=== PATIENT | female | born 1970 | race Caucasian/White ===

== ENCOUNTER 2018-01-24 10:43 | Outpatient (CLI) | payer OTHER ==
[2018-01-24 12:38] LABS: #Basophils 0.2 thou/uL (0.0-0.2); #Eosinphils 0.3 thou/uL (0.0-0.7); #Monocytes 0.5 thou/uL (0.11-0.59); #Neutrophils 4.2 thou/uL (1.40-6.50); %Eosinophils 3.8 % (0.0-10.0); %Lymphocytes 43.7 % (21.0-51.0); %Monocytes 5.1 % (0.0-10.0); %Neutrophils 45.5 % (42.0-75.0); Hemoglobin 11.8 g/dL (12.0-16.0); Mean Corpuscular HGB CONC 32.6 g/dL (32.0-36.0); Mean Corpuscular Hemoglobin 29.5 pg (27.0-31.0); Mean Corpuscular Volume 90.7 fl (81.0-99.0); Mean Platelet Volume 7.2 fL (7.4-10.4); Platelet Count 457 thou/uL (130-400); Red Blood Cell (RBC) Count 4.01 mill/uL (4.20-5.40); White Blood Cell (WBC) Count 9.2 thou/uL (4.8-10.8)
[2018-01-24 12:57] LABS: Anion Gap 14 mmol/L (10-20); BUN (Urea Nitrogen) 28 mg/dL (7.0-18.7); CRP (Inflammatory) Less than 0.50 mg/dL (= or < 0.5); Calc. Creatinine Clearance 0 mL/min (70-130); Calcium 9.6 mg/dL (7.8-10.44); Carbon Dioxide 23 mmol/L (22-29); Chloride 106 mmol/L (98-107); Estimated GFR-MDRD 71; Glucose 82 mg/dL (70-105); Potassium 5.4 mmol/L (3.5-5.1); Sodium 138 mmol/L (136-145)
--- NOTE | 2018-01-24 15:53 | EKG ---
Test Reason : Blood Pressure : / mmHG Vent. Rate : 070 BPM Atrial Rate : 070 BPM P-R Int : 176 ms QRS Dur : 088 ms QT Int : 376 ms P-R-T Axes : 049 024 027 degrees QTc Int : 406 ms Normal sinus rhythm Normal ECG Confirmed by CAROL ZAMORA ([id number]) on 01/24/2018 3:53:09 PM Referred By: COURTNEY Confirmed By:CAROL ZAMORA
== END 2018-01-24 10:44 | disposition home or self-care (01) ==
LOC: LABBT 10:43
PROVIDERS: ATTEND Orthopaedic Surgery
DX: Z01.818 Encounter for other preprocedural examination (principal); T84.54XA Infection and inflammatory reaction due to internal left knee prosthesis, initial encounter; M00.9 Pyogenic arthritis, unspecified; Z98.890 Other specified postprocedural states
CPT/HCPCS: 80048; 85025; 85652; 86140; 93005; 93010

== ENCOUNTER 2018-01-25 06:41 | Day surgery (SDC) | payer OTHER ==
--- NOTE | 2018-01-24 11:43 | HP ---
DATE OF ADMISSION: 01/25/2018 HISTORY OF PRESENT ILLNESS: The patient is a 47-year-old female, who sustained a vertical fracture o f her left patella, approximately a year and a half ago. She was treated conservatively, but did hav e persistent problems and developed a nonunion. She underwent open reduction and internal fixation i n 05/2017, which was complicated by a postoperative infection. The patient is a diabetic and chronic smoker. The infection was treated with antibiotics and wound VAC. She did improve, but has always had a persistent wound, which has slowly healed and granulated, and one of her screws did come out an d was removed in the office in the postoperative period. The fracture appears to have healed, but sh jerry still has a wound. She also fell several months ago and sustained an avulsion fracture from the in ferior pole of the patella, but she is able to straight leg raise and this does not appear to be a pr oblem. Recently, she has developed some increased pain and some slight drainage and repeat culture a gain reveals MRSA and she does have a small wound and exposed screw head. It was felt that the screw is a nidus for infection, and she has been at this time for removal of the screw and some wound debr idement and hopefully to allow this to go ahead and heal. PAST MEDICAL HISTORY: As noted above. The patient also has problems of bipolar disorder and chronic pain management, requiring large doses of pain medication. She has a history of hypertension, depre ssion, diabetes, and thyroid replacement. CURRENT MEDICATIONS: Include Bactrim, hydroxyzine, Nexium, metformin, Lipitor, clonazepam, Flexeril, ibuprofen, hydrocodone, tramadol, gabapentin. ALLERGIES: She is allergic to CELEBREX and BEXTRA, but can take ibuprofen. FAMILY HISTORY, SOCIAL HISTORY, AND REVIEW OF SYSTEMS: Otherwise, unremarkable. The patient is some what poorly compliant. PHYSICAL EXAMINATION: GENERAL: Reveals a healthy appearing female. She is afebrile. HEENT: Unremarkable. NECK: Supple. CHEST: Clear. HEART: Regular rate and rhythm. ABDOMEN: Soft, nontender. PELVIC/RECTAL/BREAST: Exams are deferred. EXTREMITIES: Pertinent findings are related to the left knee. There is some mild erythema at the wo und. There is a small 5 x 5 mm wound over the anterior knee and patella. The remainder of the wound is closed. There is some surrounding erythema. There is scant purulent drainage. There is 1 screw head exposed and a small amount of patellar bone exposed. She is able to straight leg raise. Range of motion is 5-115 degrees. She walks with a cane. There is no instability. Neurovascular exam is intact. LABORATORY AND X-RAY FINDINGS: X-rays reveal the fracture appears to be healing and there is an avul lorena fracture in the inferior pole of patella. IMPRESSION: Status post open reduction and internal fixation, left patella with nonunion and some po stoperative infection with retained implant. PLAN: Screw removal and debridement, left knee and left patella. The nature of the surgery, length of recovery, and potential complications such as persistent infection, loss of motion, neurovascular injury, thromboembolic phenomena, and need for additional treatment or repeat surgery have been discu ssed in detail.
[2018-01-25] MEDS ORDERED: Levofloxacin 500 mg/D5W 100 ml Premix Bag ONE (07:41)
[2018-01-25] MEDS ORDERED: Fentanyl 100 MCG/2 ML VIAL ONE ×3 (08:47→09:44)
[2018-01-25] MEDS ORDERED: PROPOFOL 20 ML ONE (09:02)
[2018-01-25] MEDS ORDERED: Labetalol HCl 100 MG/20 ML VIAL ONE (09:44)
--- NOTE | 2018-01-25 11:12 | OP ---
DATE OF PROCEDURE: 01/25/2018 SURGEON: Prakash Camacho M.D. ANESTHESIA: General. PREOPERATIVE DIAGNOSES: Retained implant left patella, status post open reduction internal fixation with postop infection secondary to methicillin-resistant Staphylococcus aureus. POSTOPERATIVE DIAGNOSES: Retained implant left patella, status post open reduction internal fixatio n with postop infection secondary to methicillin-resistant Staphylococcus aureus. PROCEDURE: Removal of deep implant (screw left patella). NARRATIVE REPORT: After satisfactory anesthesia was induced in supine position, the patient was prep ped and draped in routine manner. The tourniquet was not used. The small open wound was explored. A small amount of necrotic skin edges were sharply debrided. The skin edges were retracted and the s crew head along the medial aspect of patella was easily identified and the screw removed with a small fragment screwdriver without much difficulty. There was some necrotic soft tissue which was curette d and a small spicule of necrotic bone, but no obvious osteomyelitis and no gross pus or joint involv ement. The wound was thoroughly curetted to make sure there were no pockets or fluid, necrotic tissu e down to bleeding bone and bleeding subcutaneous tissue. The wound was then thoroughly irrigated wi th a liter of saline and appeared to be clean with no obvious areas of necrotic tissue. The wound wa s then gently packed open with Adaptic and a bulky compressive dressing was applied. The patient chicho kened, taken to recovery room in stable condition. There were no apparent intraoperative complicatio ns. ESTIMATED BLOOD LOSS: The estimated blood loss was negligible. The patient will be discharged home in satisfactory condition. She was instructed on ice and elevati on, use of a walker or crutches. She may resume dressing changes once or twice daily in 48 hours. S he is given a prescription for [place] 5 for pain, 48 tablets and will continue Bactrim-DS b.i.d. 20 ta blets. She will recheck in my office in 1 week or sooner for any problems prior to that time.
[2018-01-25] MEDS ORDERED: PROPOFOL 200 MG/20 ML VIAL ONE (12:34)
[2018-01-25] MEDS ORDERED: PHENYLEPHRINE-NS 100 MCG/ML 10 ML SYRINGE ONE (12:34)
[2018-01-25] MEDS ORDERED: Lidocaine 1% PF 5 ML VIAL ONE (12:34)
[2018-01-25] MEDS ORDERED: Succinylcholine Chloride 20 MG/ML 10 ml SYRINGE FS ONE (12:34)
== END 2018-01-25 11:00 | disposition home or self-care (01) ==
LOC: SDC 06:41
PROVIDERS: ATTEND Orthopaedic Surgery
PROC: 2W5RXYZ Removal of Other Device on Left Lower Leg (ICD-10-PCS; principal; 2018-01-25)
DX: T84.54XA Infection and inflammatory reaction due to internal left knee prosthesis, initial encounter (principal); B95.62 Methicillin resistant Staphylococcus aureus infection as the cause of diseases classified elsewhere; E11.9 Type 2 diabetes mellitus without complications; F31.9 Bipolar disorder, unspecified; I10 Essential (primary) hypertension; F17.200 Nicotine dependence, unspecified, uncomplicated; Z79.84 Long term (current) use of oral hypoglycemic drugs; Z79.2 Long term (current) use of antibiotics; Z79.51 Long term (current) use of inhaled steroids; Z79.899 Other long term (current) drug therapy; Z88.6 Allergy status to analgesic agent; Z98.890 Other specified postprocedural states
CPT/HCPCS: 36416; J1956; J2001; J2704; J3010; J3370

== ENCOUNTER 2020-02-19 13:01 | Outpatient (CLI) | payer OTHER ==
--- NOTE | 2020-02-19 15:50 | MRI ---
RIGHT KNEE MRI WITHOUT IV CONTRAST: HISTORY: Internal derangement right knee, right knee pain. FINDINGS: No significant joint effusion. Articular cartilage is adequately maintained. There is slight blunti ng of the free edge of the posterior root of the medial meniscus. Minimal intrasubstance intramenisc al degenerative signal. No evidence for an acute meniscal tear. Anterior and posterior cruciate lig aments and collateral ligament complexes are intact. Quadriceps and patellar tendons are intact. No acute abnormal marrow edema or acute osteochondral focus. IMPRESSION: No evidence for significant acute internal derangement. Minimal intrasubstance degenerative signal o f medial and lateral meniscus. Slight blunting of the free edge of the posterior root of the medial meniscus having more of the appearance of minimal fraying rather than a significant acute tear. POS: RRE
== END 2020-02-19 13:02 | disposition home or self-care (01) ==
LOC: BICMRI 13:01
PROVIDERS: ATTEND Orthopaedic Surgery
DX: M23.91 Unspecified internal derangement of right knee (principal); M17.11 Unilateral primary osteoarthritis, right knee

== ENCOUNTER 2021-02-19 12:05 | Outpatient (CLI) | payer OTHER | END 2021-02-19 12:06 | disposition home or self-care (01) | LOC: BICMRI 12:05 | PROVIDERS: ATTEND Neurological Surgery | DX: M51.16 Intervertebral disc disorders with radiculopathy, lumbar region (principal); M48.061 Spinal stenosis, lumbar region without neurogenic claudication | CPT/HCPCS: 72148 ==

== ENCOUNTER 2021-08-17 13:58 | Inpatient (IN) | payer OTHER ==
[2021-08-17] MEDS ORDERED: Ondansetron PF 4 MG/2 ML Vial IVP PRN (16:00)
[2021-08-17] MEDS ORDERED: Acetaminophen 325 MG TAB PO PRN (16:00)
[2021-08-17] MEDS ORDERED: Pantoprazole 80 MG, Admixture Fee 1 EACH in Sodium Chloride 0.9% 100 ML IVPB SCH (16:00)
[2021-08-17] MEDS ORDERED: Ondansetron ODT 4 MG TAB SL PRN (16:00)
[2021-08-17] MEDS ORDERED: Guaifenesin DM 100-10/5 ML UDCUP PO PRN (16:05)
[2021-08-17 16:26] LABS: #Basophils 0.1 thou/uL (0.0-0.2); #Eosinphils 0.6 thou/uL (0.0-0.7); #Monocytes 0.9 thou/uL (0.11-0.59); #Neutrophils 13.8 thou/uL (1.40-6.50); %Basophils 0.6 % (0.0-1.0); %Eosinophils 2.9 % (0.0-10.0); %Lymphocytes 20.5 % (21.0-51.0); %Monocytes 4.6 % (0.0-10.0); %Neutrophils 71.4 % (42.0-75.0); Hemoglobin 11.6 g/dL (12.0-16.0); Mean Corpuscular HGB CONC 32.8 g/dL (32.0-36.0); Mean Corpuscular Hemoglobin 28.9 pg (27.0-31.0); Mean Corpuscular Volume 87.9 fL (78.0-98.0); Platelet Count 231 thou/uL (130-400); RBC Distribution Width 12.8 % (11.5-14.5); White Blood Cell (WBC) Count 19.3 thou/uL (4.8-10.8)
[2021-08-17 16:59] VITALS: BMI 26.4
[2021-08-17] MEDS ORDERED: Morphine 4 MG/ML VIAL SLOW IVP PRN (18:15)
[2021-08-17] MEDS ORDERED: tiZANidine HCl 4 MG TAB PO PRN (18:21)
[2021-08-17] MEDS: Sodium Chloride 0.9% 1,000 ML IV SCH (18:31)
[2021-08-17] MEDS: Aripiprazole 10 MG TAB PO SCH (20:45)
[2021-08-17] MEDS: cloNIDine 0.1 MG TAB PO SCH (20:45)
[2021-08-17] MEDS: Gabapentin 300 MG CAP PO SCH (20:45)
[2021-08-17] MEDS: OXcarbazepine 300 MG TAB PO SCH (20:47)
[2021-08-17] MEDS: PARoxetine 20 MG TAB PO SCH (20:47)
[2021-08-17] MEDS: metroNIDAZOLE 500 MG TAB PO SCH (20:47)
[2021-08-17] MEDS ORDERED: metroNIDAZOLE 500 MG in Premix Bag 1 BAG IVPB SCH (22:00)
[2021-08-17] MEDS: traMADol HCl 50 MG TAB PO SCH (23:22)
[2021-08-17 23:53] LABS: Bilirubin Negative (Negative); Blood, Urine Negative (Negative); Clarity Clear (Clear); Glucose, Urine (Dipstick) 200 mg/dL (Negative); Ketone, Urine Negative (Negative); Leukocyte Negative Leu/uL (Negative); Nitrite Negative (Negative); Protein, Urine (Dipstick) Negative (Neg-Trace); Specific Gravity, Urine 1.019 (1.002-1.036); Urobilinogen Normal mg/dL (Less than 2)
[2021-08-18 04:47] LABS: #Basophils 0.1 thou/uL (0.0-0.2); #Eosinphils 0.9 thou/uL (0.0-0.7); #Lymphocytes 3.1 thou/uL (1.20-3.40); #Monocytes 0.9 thou/uL (0.11-0.59); #Neutrophils 10.4 thou/uL (1.40-6.50); %Basophils 0.7 % (0.0-1.0); %Eosinophils 5.9 % (0.0-10.0); %Lymphocytes 20.3 % (21.0-51.0); %Monocytes 5.9 % (0.0-10.0); %Neutrophils 67.2 % (42.0-75.0); Hemoglobin 11.3 g/dL (12.0-16.0); Mean Corpuscular HGB CONC 34.3 g/dL (32.0-36.0); Mean Corpuscular Hemoglobin 30.3 pg (27.0-31.0); Mean Corpuscular Volume 88.3 fL (78.0-98.0); Mean Platelet Volume 8.2 fL (7.4-10.4); Platelet Count 218 thou/uL (130-400); RBC Distribution Width 12.7 % (11.5-14.5); Red Blood Cell (RBC) Count 3.74 mill/uL (4.20-5.40); White Blood Cell (WBC) Count 15.4 thou/uL (4.8-10.8)
[2021-08-18 05:11] LABS: ALT (SGPT) 39 U/L (8-55); AST (SGOT) 9 U/L (5-34); Albumin 3.2 g/dL (3.5-5.0); Alkaline Phosphatase 107 U/L (40-110); Anion Gap 10 mmol/L (10-20); BUN (Urea Nitrogen) 13 mg/dL (9.8-20.1); Bilirubin, Total 0.2 mg/dL (0.2-1.2); Calc. Creatinine Clearance 103 mL/min (70-130); Calcium 8.5 mg/dL (7.8-10.44); Carbon Dioxide 25 mmol/L (22-29); Chloride 102 mmol/L (98-107); Globulin 2.6 g/dL (2.4-3.5); Glucose 132 mg/dL (70-105); Potassium 3.4 mmol/L (3.5-5.1); Protein, Total 5.8 g/dL (6.0-8.3); Sodium 134 mmol/L (136-145)
[2021-08-18] MEDS: traMADol HCl 50 MG TAB PO SCH ×4 (05:51→22:55)
[2021-08-18] MEDS ORDERED: CEFAZOLIN 2 GM, IV Admixture Fee-Chemo 1 UNITS in Sodium Chloride 0.9% 100 ML IVPB SCH (12:00)
[2021-08-18] MEDS ORDERED: ceFAZolin 2 GM/DEX 5% 100 ML BAG IVPB SCH (12:00)
[2021-08-18] MEDS: Gabapentin 300 MG CAP PO SCH ×3 (12:02→20:40)
[2021-08-18] MEDS: Sodium Chloride 0.9% 1,000 ML IV SCH ×2 (13:04→20:39)
[2021-08-18] MEDS: OXcarbazepine 300 MG TAB PO SCH ×2 (13:05→20:47)
[2021-08-18] MEDS: metroNIDAZOLE 500 MG TAB PO SCH ×3 (13:11→20:40)
[2021-08-18 13:31] LABS: SARS-CoV-2 PCR by NAA Not Detected (NotDetected)
[2021-08-18] MEDS ORDERED: Dextrose 50% Abboject 50 ML SYRINGE SLOW IVP PRN (17:02)
[2021-08-18] MEDS ORDERED: Dextrose 5% in Water 1,000 ML IV PRN (17:02)
[2021-08-18] MEDS ORDERED: Potassium Chloride 20 MEQ TAB PO SCH (17:30)
[2021-08-18] MEDS: HumaLOG 300 UNITS/3 ML VIAL SC PRN (17:34)
[2021-08-18] MEDS: Aripiprazole 10 MG TAB PO SCH (20:40)
[2021-08-18] MEDS: ceFAZolin Sodium/D5W 2 GM in Premix Bag 1 BAG IVPB SCH (20:40)
[2021-08-18] MEDS: cloNIDine 0.1 MG TAB PO SCH (20:40)
[2021-08-18] MEDS: PARoxetine 20 MG TAB PO SCH (20:41)
[2021-08-19 05:04] LABS: #Basophils 0.2 thou/uL (0.0-0.2); #Eosinphils 0.6 thou/uL (0.0-0.7); #Lymphocytes 3.5 thou/uL (1.20-3.40); #Monocytes 1.2 thou/uL (0.11-0.59); #Neutrophils 11.4 thou/uL (1.40-6.50); %Eosinophils 3.7 % (0.0-10.0); %Lymphocytes 20.5 % (21.0-51.0); %Monocytes 7.1 % (0.0-10.0); %Neutrophils 67.7 % (42.0-75.0); Mean Corpuscular HGB CONC 33.8 g/dL (32.0-36.0); Mean Corpuscular Hemoglobin 31.1 pg (27.0-31.0); Mean Corpuscular Volume 92.1 fL (78.0-98.0); Mean Platelet Volume 8.9 fL (7.4-10.4); Platelet Count 220 thou/uL (130-400); RBC Distribution Width 12.9 % (11.5-14.5); Red Blood Cell (RBC) Count 3.53 mill/uL (4.20-5.40); White Blood Cell (WBC) Count 16.8 thou/uL (4.8-10.8)
[2021-08-19] MEDS: traMADol HCl 50 MG TAB PO SCH ×4 (05:08→23:39)
[2021-08-19] MEDS: ceFAZolin Sodium/D5W 2 GM in Premix Bag 1 BAG IVPB SCH ×3 (05:08→21:56)
[2021-08-19 05:22] LABS: Anion Gap 13 mmol/L (10-20); BUN (Urea Nitrogen) 5 mg/dL (9.8-20.1); Calc. Creatinine Clearance 109 mL/min (70-130); Calcium 8.4 mg/dL (7.8-10.44); Carbon Dioxide 19 mmol/L (22-29); Chloride 100 mmol/L (98-107); Glucose 124 mg/dL (70-105); Potassium 3.9 mmol/L (3.5-5.1); Sodium 128 mmol/L (136-145)
[2021-08-19] MEDS: Gabapentin 300 MG CAP PO SCH ×3 (09:46→20:35)
[2021-08-19] MEDS: metroNIDAZOLE 500 MG TAB PO SCH ×3 (09:54→20:36)
[2021-08-19] MEDS: OXcarbazepine 300 MG TAB PO SCH ×2 (09:58→20:35)
[2021-08-19] MEDS: HumaLOG 300 UNITS/3 ML VIAL SC PRN (10:54)
[2021-08-19] MEDS: Bisacodyl 5 MG TAB PO PRN (10:55)
[2021-08-19] MEDS: Sodium Chloride 0.9% 1,000 ML IV SCH ×2 (11:16→23:39)
[2021-08-19] MEDS: Aripiprazole 10 MG TAB PO SCH (20:35)
[2021-08-19] MEDS: PARoxetine 20 MG TAB PO SCH (20:35)
[2021-08-19] MEDS: cloNIDine 0.1 MG TAB PO SCH (20:35)
[2021-08-19] MEDS ORDERED: metroNIDAZOLE 500 MG in Premix Bag 1 BAG IVPB SCH (22:00)
[2021-08-20] MEDS: traMADol HCl 50 MG TAB PO SCH ×4 (06:02→23:46)
[2021-08-20] MEDS: ceFAZolin Sodium/D5W 2 GM in Premix Bag 1 BAG IVPB SCH ×3 (06:02→21:20)
[2021-08-20 06:35] LABS: #Basophils 0.1 thou/uL (0.0-0.2); #Eosinphils 0.5 thou/uL (0.0-0.7); #Lymphocytes 2.4 thou/uL (1.20-3.40); #Monocytes 1.3 thou/uL (0.11-0.59); %Basophils 0.6 % (0.0-1.0); %Lymphocytes 15.5 % (21.0-51.0); %Monocytes 8.5 % (0.0-10.0); %Neutrophils 72.4 % (42.0-75.0); Hemoglobin 11.8 g/dL (12.0-16.0); Mean Corpuscular HGB CONC 33.7 g/dL (32.0-36.0); Mean Corpuscular Hemoglobin 29.4 pg (27.0-31.0); Mean Corpuscular Volume 87.3 fL (78.0-98.0); Platelet Count 322 thou/uL (130-400); RBC Distribution Width 12.7 % (11.5-14.5); Red Blood Cell (RBC) Count 4.02 mill/uL (4.20-5.40); White Blood Cell (WBC) Count 15.3 thou/uL (4.8-10.8)
[2021-08-20 06:57] LABS: Anion Gap 12 mmol/L (10-20); BUN (Urea Nitrogen) 4 mg/dL (9.8-20.1); Calc. Creatinine Clearance 123 mL/min (70-130); Carbon Dioxide 25 mmol/L (22-29); Chloride 99 mmol/L (98-107); Glucose 178 mg/dL (70-105); Potassium 3.1 mmol/L (3.5-5.1); Sodium 133 mmol/L (136-145)
[2021-08-20] MEDS ORDERED: Polyethylene Glycol 3350 17 GM Packet PO PRN (08:07)
[2021-08-20] MEDS ORDERED: Polyethylene Glycol 3350 17 GM Packet PO SCH (09:00)
[2021-08-20] MEDS: OXcarbazepine 300 MG TAB PO SCH ×2 (09:16→21:18)
[2021-08-20] MEDS: Gabapentin 300 MG CAP PO SCH ×3 (09:16→21:19)
[2021-08-20] MEDS: metroNIDAZOLE 500 MG TAB PO SCH ×3 (09:16→21:19)
[2021-08-20] MEDS: Sodium Chloride 0.9% 1,000 ML IV SCH (09:16)
[2021-08-20] MEDS: Acetaminophen/Codeine 30-300mg Tablet PO PRN (10:53)
[2021-08-20] MEDS: Bisacodyl 5 MG TAB PO PRN (10:53)
[2021-08-20] MEDS: HumaLOG 300 UNITS/3 ML VIAL SC PRN (12:44)
[2021-08-20] MEDS ORDERED: FLU VACC QS2021-22(6MOS UP)/PF 60 MCG/0.5 ML SYRINGE IM ONE (17:15)
[2021-08-20] MEDS: cloNIDine 0.1 MG TAB PO SCH (21:19)
[2021-08-20] MEDS: Aripiprazole 10 MG TAB PO SCH (21:19)
[2021-08-20] MEDS: PARoxetine 20 MG TAB PO SCH (21:19)
[2021-08-20 23:12] LABS: #Basophils 0.1 thou/uL (0.0-0.2); #Eosinphils 0.7 thou/uL (0.0-0.7); #Lymphocytes 3.5 thou/uL (1.20-3.40); #Monocytes 1.3 thou/uL (0.11-0.59); #Neutrophils 7.3 thou/uL (1.40-6.50); %Basophils 0.8 % (0.0-1.0); %Eosinophils 5.4 % (0.0-10.0); %Lymphocytes 27.1 % (21.0-51.0); %Monocytes 9.7 % (0.0-10.0); %Neutrophils 56.9 % (42.0-75.0); Hemoglobin 11.1 g/dL (12.0-16.0); Mean Corpuscular HGB CONC 34.3 g/dL (32.0-36.0); Mean Corpuscular Hemoglobin 30.1 pg (27.0-31.0); Mean Corpuscular Volume 87.7 fL (78.0-98.0); Mean Platelet Volume 7.8 fL (7.4-10.4); Platelet Count 319 thou/uL (130-400); RBC Distribution Width 12.7 % (11.5-14.5); Red Blood Cell (RBC) Count 3.68 mill/uL (4.20-5.40); White Blood Cell (WBC) Count 12.9 thou/uL (4.8-10.8)
[2021-08-21] MEDS: Sodium Chloride 0.9% 1,000 ML IV SCH (02:31)
[2021-08-21] MEDS: traMADol HCl 50 MG TAB PO SCH ×2 (05:35→12:03)
[2021-08-21] MEDS: ceFAZolin Sodium/D5W 2 GM in Premix Bag 1 BAG IVPB SCH ×2 (05:35→12:49)
[2021-08-21 05:37] LABS: #Basophils 0.1 thou/uL (0.0-0.2); #Eosinphils 0.7 thou/uL (0.0-0.7); #Lymphocytes 2.7 thou/uL (1.20-3.40); #Monocytes 1.2 thou/uL (0.11-0.59); #Neutrophils 6.4 thou/uL (1.40-6.50); %Basophils 0.6 % (0.0-1.0); %Lymphocytes 24.5 % (21.0-51.0); %Neutrophils 57.9 % (42.0-75.0); Hemoglobin 11.6 g/dL (12.0-16.0); Mean Corpuscular HGB CONC 33.5 g/dL (32.0-36.0); Mean Corpuscular Hemoglobin 29.5 pg (27.0-31.0); Mean Corpuscular Volume 88.2 fL (78.0-98.0); Mean Platelet Volume 7.6 fL (7.4-10.4); Platelet Count 379 thou/uL (130-400); RBC Distribution Width 12.6 % (11.5-14.5); Red Blood Cell (RBC) Count 3.93 mill/uL (4.20-5.40)
[2021-08-21] MEDS: HumaLOG 300 UNITS/3 ML VIAL SC PRN ×2 (05:40→12:05)
[2021-08-21 05:53] LABS: Anion Gap 11 mmol/L (10-20); BUN (Urea Nitrogen) 6 mg/dL (9.8-20.1); Calc. Creatinine Clearance 109 mL/min (70-130); Calcium 8.7 mg/dL (7.8-10.44); Carbon Dioxide 25 mmol/L (22-29); Chloride 100 mmol/L (98-107); Glucose 200 mg/dL (70-105); Potassium 3.3 mmol/L (3.5-5.1); Sodium 133 mmol/L (136-145)
[2021-08-21] MEDS: metroNIDAZOLE 500 MG TAB PO SCH (08:45)
[2021-08-21] MEDS: Gabapentin 300 MG CAP PO SCH (08:45)
[2021-08-21] MEDS: Acetaminophen/Codeine 30-300mg Tablet PO PRN (08:45)
[2021-08-21] MEDS: OXcarbazepine 300 MG TAB PO SCH (08:45)
[2021-08-21 14:10] VITALS: BP 136/91; TEMP 98.1
== END 2021-08-21 14:15 | disposition home or self-care (01) | DRG 394 ==
LOC: 2NO 15:48 → T4-A 08-19 11:20
PROVIDERS: ADMIT Hospitalist; ATTEND Internal Medicine
DX: K55.039 Acute (reversible) ischemia of large intestine, extent unspecified (principal); D62 Acute posthemorrhagic anemia; R78.81 Bacteremia; N39.0 Urinary tract infection, site not specified; Z20.822 Contact with and (suspected) exposure to COVID-19; J44.9 Chronic obstructive pulmonary disease, unspecified; F17.210 Nicotine dependence, cigarettes, uncomplicated; F31.9 Bipolar disorder, unspecified; B95.61 Methicillin susceptible Staphylococcus aureus infection as the cause of diseases classified elsewhere; E11.9 Type 2 diabetes mellitus without complications; I10 Essential (primary) hypertension; F41.9 Anxiety disorder, unspecified; E87.6 Hypokalemia; B96.20 Unspecified Escherichia coli [E. coli] as the cause of diseases classified elsewhere; F12.10 Cannabis abuse, uncomplicated; Z88.5 Allergy status to narcotic agent; Z79.84 Long term (current) use of oral hypoglycemic drugs; Z79.51 Long term (current) use of inhaled steroids; Z79.899 Other long term (current) drug therapy
CPT/HCPCS: 36415; 36416; 80048; 80053; 85025; 87045; 87046; 87427; 87449; 93005; 93010; J0690; J0744; J1815; J3490; J7050; U0003; U0005

== ENCOUNTER 2022-02-15 07:00 | Day surgery (SDC) | payer OTHER ==
[2022-02-15 08:14] VITALS: BP 138/87; TEMP 98.2
[2022-02-15] MEDS ORDERED: Acetaminophen 500 MG TAB ONE (09:06)
[2022-02-15] MEDS ORDERED: Iopamidol-M 200 41% 20 ML VIAL ONE (09:10)
== END 2022-02-15 09:45 | disposition home or self-care (01) ==
LOC: RAD 07:00
PROVIDERS: ATTEND Neurological Surgery
PROC: B01B1ZZ Fluoroscopy of Spinal Cord using Low Osmolar Contrast (ICD-10-PCS; principal; 2022-02-15)
DX: M51.16 Intervertebral disc disorders with radiculopathy, lumbar region (principal); M47.26 Other spondylosis with radiculopathy, lumbar region; M48.061 Spinal stenosis, lumbar region without neurogenic claudication; M51.37 Other intervertebral disc degeneration, lumbosacral region; M48.07 Spinal stenosis, lumbosacral region; Z79.84 Long term (current) use of oral hypoglycemic drugs; Z79.899 Other long term (current) drug therapy; Z88.6 Allergy status to analgesic agent; Z88.8 Allergy status to other drugs, medicaments and biological substances
CPT/HCPCS: 62304; 72132; Q9966

== ENCOUNTER 2022-09-10 13:26 | Inpatient (IN) | payer OTHER ==
[2022-09-10] MEDS ORDERED: Cefepime 2 GM VIAL ONE (13:48)
[2022-09-10] MEDS ORDERED: Nitroglycerin 2% Ointment 1 INCH/1 GM Packet ONE (13:48)
[2022-09-10] MEDS ORDERED: Vancomycin 1 GM/200 ML (FROZEN) BAG ONE (13:48)
[2022-09-10] MEDS ORDERED: Magnesium 2 GM/50 ML BAG (IN WATER) ONE (13:54)
[2022-09-10 14:18] LABS: Hemoglobin 12.1 g/dL (12.0-16.0); Mean Corpuscular HGB CONC 32.7 g/dL (32.0-36.0); Mean Corpuscular Volume 88.5 fl (78.0-98.0); Platelet Count 314 10x3/uL (130-400); RBC Distribution Width 12.3 % (11.5-14.5); Red Blood Cell (RBC) Count 4.17 mill/uL (4.20-5.40); White Blood Cell (WBC) Count 22.6 10x3/uL (4.8-10.8)
[2022-09-10 14:34] LABS: Band 12 % (5-11); MDiff Complete? YES; Monocytes 1 % (0-10); Neutrophil 86 % (42-75); Platelet Morphology Comment Appears Adequate; RBC Morphology Normal; Reactive Lymphocytes 1 % (0-10)
[2022-09-10 14:36] LABS: ALT (SGPT) 51 U/L (8-55); AST (SGOT) 36 U/L (5-34); Albumin 4.3 g/dL (3.5-5.0); Alkaline Phosphatase 158 U/L (40-110); Anion Gap 15 mmol/L (10-20); BUN (Urea Nitrogen) 17 mg/dL (9.8-20.1); Bilirubin, Total 0.2 mg/dL (0.2-1.2); Calc. Creatinine Clearance 0 mL/min (70-130); Calcium 9.3 mg/dL (7.8-10.44); Carbon Dioxide 20 mmol/L (22-29); Chloride 97 mmol/L (98-107); Estimated GFR 82; Globulin 2.8 g/dL (2.4-3.5); Glucose 393 mg/dL (70-105); Lipase 45 U/L (8-78); Magnesium 1.3 mg/dL (1.6-2.6); Potassium 4.6 mmol/L (3.5-5.1); Protein, Total 7.1 g/dL (6.0-8.3); Sodium 127 mmol/L (136-145)
[2022-09-10] MEDS ORDERED: Senokot S 8.6-50 MG TAB PO PRN (17:12)
[2022-09-10] MEDS ORDERED: Dextrose 5% in Water 1,000 ML IV PRN (17:15)
[2022-09-10] MEDS ORDERED: Furosemide 20 MG/2 ML VIAL SLOW IVP SCH (17:15)
[2022-09-10] MEDS ORDERED: Dextrose 50% Abboject 50 ML SYRINGE SLOW IVP PRN (17:15)
[2022-09-10 17:36] VITALS: BMI 31.3
[2022-09-10 17:41] LABS: SARS-CoV-2 NAA Rapid Test Not Detected (NotDetected)
[2022-09-10] MEDS: Nicotine 14 MG PATCH TD SCH (17:48)
[2022-09-10 19:06] LABS: Bacteria/HPF None Seen HPF (None Seen); Bilirubin Negative (Negative); Blood, Urine Negative (Negative); Clarity Clear (Clear); Glucose, Urine (Dipstick) 300 mg/dL (Negative); Ketone, Urine Negative (Negative); Leukocyte Negative Leu/uL (Negative); Nitrite Negative (Negative); Protein, Urine (Dipstick) Negative (Neg-Trace); RBC/HPF None Seen HPF (0-3); Specific Gravity, Urine 1.006 (1.002-1.036); Squamous Epithelial 0-3 HPF (0-3); Urobilinogen Normal mg/dL (Less than 2); WBC/HPF 0-3 HPF (0-3); pH, Urine 5.5 (5.0-9.0)
[2022-09-10 19:14] LABS: Amphetamine Not Detected (NotDetected); Barbiturates Screen Not Detected (NotDetected); Benzodiazepine Screen Not Detected (NotDetected); Cocaine Metabolite Screen Not Detected (NotDetected); Methadone Not Detected (NotDetected); Methamphetamine Detected (NotDetected); Opiate Screen Not Detected (NotDetected); Oxycodone Screen Not Detected (NotDetected); Phencyclidine (PCP) Not Detected (NotDetected); THC/Cannabinoid Screen Detected (NotDetected); Tricyclic Screen Not Detected (NotDetected)
[2022-09-10] MEDS: Famotidine 20 MG TAB PO SCH (20:40)
[2022-09-10] MEDS: OXcarbazepine 300 MG TAB PO SCH (20:40)
[2022-09-10] MEDS: cefTRIAXone\\ROCEPHIN 1 GM in Sodium Chloride 0.9% 100 ML IVPB SCH (20:40)
[2022-09-10] MEDS: Doxycycline 100 MG CAP PO SCH (20:44)
[2022-09-10] MEDS: methylPREDNISolone Sod Succ 40 MG VIAL IVP SCH (20:44)
[2022-09-10] MEDS: HumaLOG 300 UNITS/3 ML VIAL SC PRN (20:50)
[2022-09-11] MEDS: HumaLOG 300 UNITS/3 ML VIAL SC PRN (05:55)
[2022-09-11 07:48] LABS: #Basophils 0.1 thou/uL (0.0-0.2); #Lymphocytes 2.4 thou/uL (1.20-3.40); #Monocytes 0.6 thou/uL (0.11-0.59); #Neutrophils 7.4 thou/uL (1.40-6.50); %Basophils 0.6 % (0.0-1.0); %Eosinophils 0.1 % (0.0-10.0); %Lymphocytes 23.1 % (21.0-51.0); %Monocytes 5.7 % (0.0-10.0); %Neutrophils 70.5 % (42.0-75.0); Hemoglobin 11.5 g/dL (12.0-16.0); Mean Corpuscular HGB CONC 32.1 g/dL (32.0-36.0); Mean Corpuscular Hemoglobin 28.4 pg (27.0-31.0); Mean Corpuscular Volume 88.3 fl (78.0-98.0); Mean Platelet Volume 8.3 fL (7.4-10.4); Platelet Count 305 10x3/uL (130-400); RBC Distribution Width 12.3 % (11.5-14.5); Red Blood Cell (RBC) Count 4.04 mill/uL (4.20-5.40); White Blood Cell (WBC) Count 10.4 10x3/uL (4.8-10.8)
[2022-09-11 07:51] LABS: Anion Gap 13 mmol/L (10-20); BUN (Urea Nitrogen) 16 mg/dL (9.8-20.1); Calc. Creatinine Clearance 114 mL/min (70-130); Calcium 9.3 mg/dL (7.8-10.44); Carbon Dioxide 24 mmol/L (22-29); Chloride 102 mmol/L (98-107); Estimated GFR 102; Glucose 147 mg/dL (70-105); Potassium 4.2 mmol/L (3.5-5.1); Sodium 135 mmol/L (136-145)
[2022-09-11] MEDS: Aripiprazole 10 MG TAB PO SCH (09:12)
[2022-09-11] MEDS: Famotidine 20 MG TAB PO SCH ×2 (09:12→20:34)
[2022-09-11] MEDS: Enoxaparin Sodium 40 MG/0.4 ML SYRINGE SC SCH (09:12)
[2022-09-11] MEDS: Doxycycline 100 MG CAP PO SCH ×2 (09:12→20:36)
[2022-09-11] MEDS: Lisinopril 5 MG TAB PO SCH (09:13)
[2022-09-11] MEDS: methylPREDNISolone Sod Succ 40 MG VIAL IVP SCH ×2 (09:13→20:36)
[2022-09-11] MEDS: OXcarbazepine 300 MG TAB PO SCH ×2 (09:13→20:35)
[2022-09-11] MEDS: Acetaminophen 325 MG TAB PO PRN (09:16)
[2022-09-11] MEDS ORDERED: tiZANidine HCl 4 MG TAB PO PRN (13:32)
[2022-09-11] MEDS: Gabapentin 300 MG CAP PO SCH ×2 (16:40→20:35)
[2022-09-11] MEDS: Nicotine 14 MG PATCH TD SCH (17:10)
[2022-09-11] MEDS: metFORMIN 500 MG TAB PO SCH (17:10)
[2022-09-11] MEDS: Mometasone 200 MCG/Formoterol 5 MCG 120 PUFF INHALER INH SCH (18:54)
[2022-09-11] MEDS: cloNIDine 0.1 MG TAB PO SCH (20:35)
[2022-09-11] MEDS: PARoxetine 20 MG TAB PO SCH (20:35)
[2022-09-11] MEDS: cefTRIAXone\\ROCEPHIN 1 GM in Sodium Chloride 0.9% 100 ML IVPB SCH (20:37)
[2022-09-12 06:49] LABS: #Basophils 0.1 thou/uL (0.0-0.2); #Eosinphils 0.1 thou/uL (0.0-0.7); #Lymphocytes 4.4 thou/uL (1.20-3.40); #Monocytes 0.7 thou/uL (0.11-0.59); #Neutrophils 7.2 thou/uL (1.40-6.50); %Basophils 0.8 % (0.0-1.0); %Eosinophils 0.4 % (0.0-10.0); %Lymphocytes 35.3 % (21.0-51.0); %Monocytes 5.7 % (0.0-10.0); %Neutrophils 57.7 % (42.0-75.0); Hemoglobin 11.4 g/dL (12.0-16.0); Mean Corpuscular HGB CONC 32.3 g/dL (32.0-36.0); Mean Corpuscular Hemoglobin 28.6 pg (27.0-31.0); Mean Corpuscular Volume 88.5 fl (78.0-98.0); Mean Platelet Volume 8.1 fL (7.4-10.4); Platelet Count 319 10x3/uL (130-400); RBC Distribution Width 12.3 % (11.5-14.5); Red Blood Cell (RBC) Count 3.98 mill/uL (4.20-5.40); White Blood Cell (WBC) Count 12.5 10x3/uL (4.8-10.8)
[2022-09-12 07:13] LABS: ALT (SGPT) 30 U/L (8-55); AST (SGOT) 12 U/L (5-34); Alkaline Phosphatase 112 U/L (40-110); Anion Gap 13 mmol/L (10-20); BUN (Urea Nitrogen) 30 mg/dL (9.8-20.1); Bilirubin, Total 0.2 mg/dL (0.2-1.2); Calc. Creatinine Clearance 106 mL/min (70-130); Carbon Dioxide 24 mmol/L (22-29); Chloride 100 mmol/L (98-107); Estimated GFR 94; Globulin 2.8 g/dL (2.4-3.5); Glucose 137 mg/dL (70-105); Potassium 4.7 mmol/L (3.5-5.1); Protein, Total 6.8 g/dL (6.0-8.3); Sodium 132 mmol/L (136-145)
[2022-09-12] MEDS: Mometasone 200 MCG/Formoterol 5 MCG 120 PUFF INHALER INH SCH ×2 (07:17→19:12)
[2022-09-12] MEDS ORDERED: Non-Formulary Item 1 EACH (Tiotropium Bromide 4 GM Inhaler) IH SCH (09:00)
[2022-09-12] MEDS: Doxycycline 100 MG CAP PO SCH ×2 (09:12→21:12)
[2022-09-12] MEDS: metFORMIN 500 MG TAB PO SCH ×2 (09:12→16:00)
[2022-09-12] MEDS: Aripiprazole 10 MG TAB PO SCH (09:12)
[2022-09-12] MEDS: Enoxaparin Sodium 40 MG/0.4 ML SYRINGE SC SCH (09:13)
[2022-09-12] MEDS: methylPREDNISolone Sod Succ 40 MG VIAL IVP SCH ×2 (09:13→21:12)
[2022-09-12] MEDS: Gabapentin 300 MG CAP PO SCH ×3 (09:13→21:13)
[2022-09-12] MEDS: OXcarbazepine 300 MG TAB PO SCH ×2 (09:13→21:11)
[2022-09-12] MEDS: Famotidine 20 MG TAB PO SCH ×2 (09:13→21:13)
[2022-09-12] MEDS: Lisinopril 5 MG TAB PO SCH (09:13)
[2022-09-12] MEDS: Guaifenesin DM 100-10/5 ML UDCUP PO PRN ×2 (09:14→21:10)
[2022-09-12] MEDS: Acetaminophen 325 MG TAB PO PRN (09:14)
[2022-09-12] MEDS: Nicotine 14 MG PATCH TD SCH (16:01)
[2022-09-12] MEDS: HumaLOG 300 UNITS/3 ML VIAL SC PRN (16:01)
[2022-09-12] MEDS: PARoxetine 20 MG TAB PO SCH (21:12)
[2022-09-12] MEDS: cloNIDine 0.1 MG TAB PO SCH (21:15)
[2022-09-12] MEDS: cefTRIAXone\\ROCEPHIN 1 GM in Sodium Chloride 0.9% 100 ML IVPB SCH (21:16)
[2022-09-13] MEDS: Mometasone 200 MCG/Formoterol 5 MCG 120 PUFF INHALER INH SCH (07:03)
[2022-09-13 07:52] VITALS: BP 130/77; TEMP 98.4
[2022-09-13] MEDS: metFORMIN 500 MG TAB PO SCH (08:40)
[2022-09-13] MEDS: Aripiprazole 10 MG TAB PO SCH (08:40)
[2022-09-13] MEDS: Famotidine 20 MG TAB PO SCH (08:41)
[2022-09-13] MEDS: methylPREDNISolone Sod Succ 40 MG VIAL IVP SCH (08:41)
[2022-09-13] MEDS: Lisinopril 5 MG TAB PO SCH (08:41)
[2022-09-13] MEDS: Gabapentin 300 MG CAP PO SCH (08:41)
[2022-09-13] MEDS: OXcarbazepine 300 MG TAB PO SCH (08:41)
[2022-09-13] MEDS: Enoxaparin Sodium 40 MG/0.4 ML SYRINGE SC SCH (08:41)
[2022-09-13] MEDS: Doxycycline 100 MG CAP PO SCH (08:42)
[2022-09-13] MEDS ORDERED: FLU VACC QS2022-23(6MOS UP)/PF 60 MCG/0.5 ML SYRINGE IM ONE (09:00)
== END 2022-09-13 13:57 | disposition home or self-care (01) | DRG 189 ==
LOC: ERS 13:26 → T4-A 17:25
PROVIDERS: ADMIT Student in an Organized Health Care Education/Training Program; ATTEND Family Medicine
DX: J96.01 Acute respiratory failure with hypoxia (principal); J44.1 Chronic obstructive pulmonary disease with (acute) exacerbation; E87.1 Hypo-osmolality and hyponatremia; F17.210 Nicotine dependence, cigarettes, uncomplicated; I10 Essential (primary) hypertension; F31.9 Bipolar disorder, unspecified; D72.829 Elevated white blood cell count, unspecified; E11.65 Type 2 diabetes mellitus with hyperglycemia; F19.10 Other psychoactive substance abuse, uncomplicated; Z98.890 Other specified postprocedural states; Z88.8 Allergy status to other drugs, medicaments and biological substances; Z90.49 Acquired absence of other specified parts of digestive tract; Z90.710 Acquired absence of both cervix and uterus; Z79.899 Other long term (current) drug therapy; Z71.6 Tobacco abuse counseling; Z79.84 Long term (current) use of oral hypoglycemic drugs; Z20.822 Contact with and (suspected) exposure to COVID-19
CPT/HCPCS: 36415; 36416; 71045; 80048; 80053; 80306; 81001; 83605; 83690; 83735; 83880; 84484; 85025; 87040; 93005; 94640; 94760; 96374; 96375; J0692; J0696; J1650; J1815; J1940; J2920; J3370-JW; J3475; J3490; J7620

== ENCOUNTER 2022-11-23 17:05 | Inpatient (IN) | payer OTHER ==
[2022-11-23] MEDS ORDERED: Ipratropium/Albuterol 3 ML NEB ONE (19:14)
[2022-11-23 19:54] LABS: Actual Bicarbonate (HCO3a) 22.3 mEq/L (22-28); Analyzer IN Cardio ER; Base Excess (BEa) -2.7 mEq/L (-2.0 to +3.0); CO2 Tension 39.4 mmHg (35.0-45.0); Calcium, Ionized (arterial) 1.14 mmol/L (1.12-1.30); Carboxyhemoglobin (COHb) 4.1 gm% (0.0-3.0); O2 Tension (PaO2), arterial 108.7 mmHg (80.0-100.0); Potassium - ABG Lab 4.18 mmol/L (3.70-5.30); pH, Arterial 7.37 (7.35-7.45)
[2022-11-23 20:04] LABS: Hemoglobin 12.5 g/dL (12.0-16.0); Mean Corpuscular HGB CONC 32.8 g/dL (32.0-36.0); Mean Corpuscular Hemoglobin 28.2 pg (27.0-31.0); Mean Corpuscular Volume 85.9 fl (78.0-98.0); Mean Platelet Volume 7.5 fL (7.4-10.4); Platelet Count 351 10x3/uL (130-400); RBC Distribution Width 12.7 % (11.5-14.5); Red Blood Cell (RBC) Count 4.43 mill/uL (4.20-5.40)
[2022-11-23 20:18] LABS: Band 7 % (5-11); Lymphocytes 1 % (21-51); MDiff Complete? YES; Monocytes 1 % (0-10); Neutrophil 91 % (42-75); Platelet Morphology Comment Appears Adequate; RBC Morphology Normal
[2022-11-23 20:22] LABS: ALT (SGPT) 19 U/L (8-55); AST (SGOT) 13 U/L (5-34); Albumin 4.2 g/dL (3.5-5.0); Alkaline Phosphatase 156 U/L (40-110); Anion Gap 10 mmol/L (10-20); BUN (Urea Nitrogen) 11 mg/dL (9.8-20.1); Bilirubin, Total 0.2 mg/dL (0.2-1.2); CK (CPK) 85 U/L (29-168); Calc. Creatinine Clearance 0 mL/min (70-130); Carbon Dioxide 24 mmol/L (22-29); Chloride 98 mmol/L (98-107); Estimated GFR 98; Globulin 2.8 g/dL (2.4-3.5); Glucose 303 mg/dL (70-105); Lipase 13 U/L (8-78); Potassium 4.2 mmol/L (3.5-5.1); Sodium 128 mmol/L (136-145)
[2022-11-23 20:26] LABS: Puncture Site RRA
[2022-11-23 22:21] LABS: Bacteria/HPF 4+ HPF (None Seen); Bilirubin Negative (Negative); Blood, Urine Negative (Negative); Clarity Clear (Clear); Glucose, Urine (Dipstick) 500 mg/dL (Negative); Ketone, Urine Negative (Negative); Leukocyte Negative Leu/uL (Negative); Nitrite Negative (Negative); Protein, Urine (Dipstick) 30 mg/dL (Neg-Trace); RBC/HPF 0-3 HPF (0-3); Specific Gravity, Urine 1.006 (1.002-1.036); Squamous Epithelial 0-3 HPF (0-3); Urobilinogen Normal mg/dL (Less than 2); WBC/HPF 0-3 HPF (0-3); pH, Urine 6.5 (5.0-9.0)
[2022-11-23] MEDS ORDERED: Senokot S 8.6-50 MG TAB PO PRN (22:26)
[2022-11-23] MEDS ORDERED: Furosemide 20 MG/2 ML VIAL SLOW IVP SCH (22:30)
[2022-11-23] MEDS ORDERED: methylPREDNISolone Sod Succ 40 MG VIAL IVP SCH (22:45)
[2022-11-23 22:46] LABS: SARS-CoV-2 NAA Rapid Test Not Detected (NotDetected)
[2022-11-23 22:54] LABS: Hemoglobin A1c 7.1 % (4.0-6.0)
[2022-11-24] MEDS: cefTRIAXone\\ROCEPHIN 1 GM in Sodium Chloride 0.9% 100 ML IVPB SCH ×2 (00:15→22:28)
[2022-11-24] MEDS: Acetaminophen 325 MG TAB PO PRN ×2 (00:16→15:37)
[2022-11-24] MEDS: Ipratropium/Albuterol 3 ML NEB NEB SCH ×4 (00:40→18:50)
[2022-11-24 00:55] VITALS: BMI 31.1
[2022-11-24] MEDS ORDERED: metFORMIN 500 MG TAB PO SCH (08:00)
[2022-11-24] MEDS: Aripiprazole 10 MG TAB PO SCH (09:19)
[2022-11-24] MEDS: methylPREDNISolone Sod Succ 40 MG VIAL IVP SCH ×2 (09:19→20:18)
[2022-11-24] MEDS: OXcarbazepine 300 MG TAB PO SCH ×2 (09:19→20:17)
[2022-11-24] MEDS: Doxycycline 100 MG CAP PO SCH ×2 (09:19→20:17)
[2022-11-24] MEDS: Lisinopril 5 MG TAB PO SCH (09:19)
[2022-11-24] MEDS: Gabapentin 300 MG CAP PO SCH ×3 (09:19→20:17)
[2022-11-24 11:43] LABS: Anion Gap 15 mmol/L (10-20); BUN (Urea Nitrogen) 13 mg/dL (9.8-20.1); Calc. Creatinine Clearance 113 mL/min (70-130); Calcium 9.7 mg/dL (7.8-10.44); Carbon Dioxide 20 mmol/L (22-29); Chloride 102 mmol/L (98-107); Estimated GFR 103; Glucose 136 mg/dL (70-105); Potassium 4.1 mmol/L (3.5-5.1); Sodium 133 mmol/L (136-145)
[2022-11-24 11:44] LABS: #Basophils 0.1 thou/uL (0.0-0.2); #Lymphocytes 2.3 thou/uL (1.20-3.40); #Monocytes 0.6 thou/uL (0.11-0.59); %Basophils 0.7 % (0.0-1.0); %Eosinophils 0.4 % (0.0-10.0); %Lymphocytes 22.7 % (21.0-51.0); %Monocytes 5.5 % (0.0-10.0); %Neutrophils 70.7 % (42.0-75.0); Hemoglobin 13.3 g/dL (12.0-16.0); Mean Corpuscular HGB CONC 32.4 g/dL (32.0-36.0); Mean Corpuscular Volume 86.3 fl (78.0-98.0); Mean Platelet Volume 7.8 fL (7.4-10.4); Platelet Count 372 10x3/uL (130-400); RBC Distribution Width 12.7 % (11.5-14.5); Red Blood Cell (RBC) Count 4.76 mill/uL (4.20-5.40); White Blood Cell (WBC) Count 9.9 10x3/uL (4.8-10.8)
[2022-11-24] MEDS: hydrOXYzine 25 MG TAB PO PRN (14:56)
[2022-11-24] MEDS ORDERED: Dextrose 50% Abboject 50 ML SYRINGE SLOW IVP PRN (15:44)
[2022-11-24] MEDS ORDERED: Dextrose 5% in Water 1,000 ML IV PRN (15:44)
[2022-11-24] MEDS ORDERED: HumaLOG 300 UNITS/3 ML VIAL SC PRN (15:44)
[2022-11-24] MEDS: PARoxetine 20 MG TAB PO SCH (20:17)
[2022-11-24] MEDS ORDERED: cloNIDine 0.1 MG TAB PO SCH (21:00)
[2022-11-24] MEDS ORDERED: GUAIFENESIN SF SOLN 200 MG/10 ML UDCUP PO PRN (22:20)
[2022-11-24] MEDS ORDERED: Chloraseptic Spray 180 ml Bottle PO PRN (22:22)
[2022-11-25] MEDS: Ipratropium/Albuterol 3 ML NEB NEB SCH ×5 (00:16→23:38)
[2022-11-25 06:16] LABS: #Basophils 0.1 thou/uL (0.0-0.2); #Eosinphils 0.1 thou/uL (0.0-0.7); #Lymphocytes 3.7 thou/uL (1.20-3.40); #Monocytes 0.7 thou/uL (0.11-0.59); #Neutrophils 5.6 thou/uL (1.40-6.50); %Eosinophils 0.9 % (0.0-10.0); %Lymphocytes 36.8 % (21.0-51.0); %Monocytes 6.6 % (0.0-10.0); %Neutrophils 54.8 % (42.0-75.0); Mean Corpuscular HGB CONC 32.8 g/dL (32.0-36.0); Mean Corpuscular Hemoglobin 28.6 pg (27.0-31.0); Mean Platelet Volume 7.4 fL (7.4-10.4); Platelet Count 363 10x3/uL (130-400); RBC Distribution Width 12.8 % (11.5-14.5); Red Blood Cell (RBC) Count 4.57 mill/uL (4.20-5.40); White Blood Cell (WBC) Count 10.1 10x3/uL (4.8-10.8)
[2022-11-25 06:43] LABS: Anion Gap 13 mmol/L (10-20); BUN (Urea Nitrogen) 22 mg/dL (9.8-20.1); Calc. Creatinine Clearance 103 mL/min (70-130); Calcium 9.4 mg/dL (7.8-10.44); Carbon Dioxide 25 mmol/L (22-29); Chloride 100 mmol/L (98-107); Estimated GFR 92; Glucose 135 mg/dL (70-105); Potassium 4.6 mmol/L (3.5-5.1); Sodium 133 mmol/L (136-145)
[2022-11-25] MEDS: Aripiprazole 10 MG TAB PO SCH (08:37)
[2022-11-25] MEDS: methylPREDNISolone Sod Succ 40 MG VIAL IVP SCH (08:37)
[2022-11-25] MEDS: Doxycycline 100 MG CAP PO SCH ×2 (08:37→21:05)
[2022-11-25] MEDS: Gabapentin 300 MG CAP PO SCH ×3 (08:37→21:03)
[2022-11-25] MEDS: hydrOXYzine 25 MG TAB PO PRN ×3 (08:37→21:06)
[2022-11-25] MEDS: Lisinopril 5 MG TAB PO SCH (08:37)
[2022-11-25] MEDS: OXcarbazepine 300 MG TAB PO SCH ×2 (08:37→21:04)
[2022-11-25] MEDS ORDERED: predniSONE 20 MG TAB PO SCH (21:00)
[2022-11-25] MEDS: PARoxetine 20 MG TAB PO SCH (21:05)
[2022-11-26] MEDS: hydrOXYzine 25 MG TAB PO PRN (00:30)
[2022-11-26 06:20] LABS: #Basophils 0.1 thou/uL (0.0-0.2); #Eosinphils 0.1 thou/uL (0.0-0.7); #Lymphocytes 1.9 thou/uL (1.20-3.40); #Monocytes 0.4 thou/uL (0.11-0.59); #Neutrophils 8.9 thou/uL (1.40-6.50); %Basophils 0.5 % (0.0-1.0); %Eosinophils 0.7 % (0.0-10.0); %Lymphocytes 16.6 % (21.0-51.0); %Monocytes 3.1 % (0.0-10.0); %Neutrophils 79.1 % (42.0-75.0); Hemoglobin 14.1 g/dL (12.0-16.0); Mean Corpuscular HGB CONC 31.6 g/dL (32.0-36.0); Mean Corpuscular Hemoglobin 27.6 pg (27.0-31.0); Mean Corpuscular Volume 87.2 fl (78.0-98.0); Mean Platelet Volume 8.3 fL (7.4-10.4); Platelet Count 240 10x3/uL (130-400); RBC Distribution Width 12.9 % (11.5-14.5); Red Blood Cell (RBC) Count 5.13 mill/uL (4.20-5.40); White Blood Cell (WBC) Count 11.3 10x3/uL (4.8-10.8)
[2022-11-26 06:44] LABS: Cholesterol 216 mg/dl (< 200 Desired)
[2022-11-26] MEDS: Ipratropium/Albuterol 3 ML NEB NEB SCH ×2 (06:59→11:53)
[2022-11-26 07:54] LABS: Chloride 100 mmol/L (98-107); Potassium 4.7 mmol/L (3.5-5.1); Sodium 132 mmol/L (136-145)
[2022-11-26 07:55] LABS: Calcium 9.6 mg/dL (7.8-10.44); Triglycerides 161 mg/dL (Less than 150)
[2022-11-26 07:56] LABS: Anion Gap 14 mmol/L (10-20); Carbon Dioxide 23 mmol/L (22-29)
[2022-11-26] MEDS ORDERED: predniSONE 20 MG TAB PO SCH (08:00)
[2022-11-26] MEDS ORDERED: Carvedilol 3.125 MG TAB PO SCH ×2 (08:00)
[2022-11-26 08:01] LABS: HDL Cholesterol 74 mg/dL (>60 Neg Risk); LDL Cholesterol, Calculated 113 mg/dL
[2022-11-26 08:55] LABS: BUN (Urea Nitrogen) 32 mg/dL (9.8-20.1); Calc. Creatinine Clearance 100 mL/min (70-130); Estimated GFR 89; Glucose 121 mg/dL (70-105)
[2022-11-26] MEDS ORDERED: Aspirin 81 mg Enteric Coated Tablet PO SCH (09:00)
[2022-11-26] MEDS: Aripiprazole 10 MG TAB PO SCH (09:05)
[2022-11-26] MEDS: Doxycycline 100 MG CAP PO SCH (09:06)
[2022-11-26] MEDS: Lisinopril 5 MG TAB PO SCH (09:06)
[2022-11-26] MEDS: Gabapentin 300 MG CAP PO SCH (09:06)
[2022-11-26] MEDS: OXcarbazepine 300 MG TAB PO SCH (09:06)
[2022-11-26 15:57] VITALS: BP 148/67; TEMP 98.6
== END 2022-11-26 15:35 | disposition home or self-care (01) | DRG 189 ==
LOC: ERS 17:05 → T4-B 21:16
PROVIDERS: ADMIT Internal Medicine; ATTEND Internal Medicine
DX: J96.01 Acute respiratory failure with hypoxia (principal); J44.1 Chronic obstructive pulmonary disease with (acute) exacerbation; E87.1 Hypo-osmolality and hyponatremia; I50.22 Chronic systolic (congestive) heart failure; Z20.822 Contact with and (suspected) exposure to COVID-19; I11.0 Hypertensive heart disease with heart failure; E11.9 Type 2 diabetes mellitus without complications; F31.9 Bipolar disorder, unspecified; Z88.3 Allergy status to other anti-infective agents; Z88.8 Allergy status to other drugs, medicaments and biological substances; Z79.899 Other long term (current) drug therapy; Z79.84 Long term (current) use of oral hypoglycemic drugs; Z87.891 Personal history of nicotine dependence; Z90.710 Acquired absence of both cervix and uterus; Z90.49 Acquired absence of other specified parts of digestive tract
CPT/HCPCS: 36415; 36416; 36600; 71045; 80048; 80053; 80061; 81003; 81015; 82550; 82805; 83036; 83605; 83690; 83880; 84484; 85025; 87040; 93005; 93306; 94640; J0696; J1650; J1815; J1940; J1956; J2920; J3490; J7512; J7611; J7620; U0002

== ENCOUNTER 2022-12-16 14:12 | Inpatient (IN) | payer OTHER ==
[2022-12-16] MEDS ORDERED: FLU VACC QS2022-23(6MOS UP)/PF 60 MCG/0.5 ML SYRINGE IM ONE (17:15)
[2022-12-16] MEDS ORDERED: Ondansetron PF 4 MG/2 ML Vial IVP PRN (20:05)
[2022-12-16] MEDS ORDERED: Acetaminophen 325 MG TAB PO PRN (20:05)
[2022-12-16] MEDS ORDERED: Ipratropium/Albuterol 3 ML NEB EZPAP PRN (20:07)
[2022-12-16] MEDS ORDERED: Dextrose 5% in Water 1,000 ML IV PRN (20:09)
[2022-12-16] MEDS ORDERED: HumaLOG 300 UNITS/3 ML VIAL SC PRN ×2 (20:09)
[2022-12-16] MEDS ORDERED: Dextrose 50% Abboject 50 ML SYRINGE SLOW IVP PRN (20:09)
[2022-12-16] MEDS ORDERED: Mometasone 200 MCG/Formoterol 5 MCG 120 PUFF INHALER INH SCH (20:15)
[2022-12-16 20:55] LABS: Anion Gap 15 mmol/L (10-20); BUN (Urea Nitrogen) 36 mg/dL (9.8-20.1); Calc. Creatinine Clearance 0 mL/min (70-130); Calcium 8.8 mg/dL (7.8-10.44); Carbon Dioxide 23 mmol/L (22-29); Chloride 94 mmol/L (98-107); Estimated GFR 52; Potassium 4.4 mmol/L (3.5-5.1); Sodium 128 mmol/L (136-145)
[2022-12-16 21:01] LABS: Glucose 426 mg/dL (70-105)
[2022-12-16] MEDS: methylPREDNISolone Sod Succ 40 MG VIAL IVP SCH (23:26)
[2022-12-16] MEDS: Ipratropium/Albuterol 3 ML NEB NEB SCH (23:31)
[2022-12-17] MEDS ORDERED: HumaLOG 300 UNITS/3 ML VIAL SC PRN (01:32)
[2022-12-17] MEDS ORDERED: Dextrose 50% Abboject 50 ML SYRINGE SLOW IVP PRN (01:32)
[2022-12-17] MEDS ORDERED: Dextrose 5% in Water 1,000 ML IV PRN (01:32)
[2022-12-17 01:44] VITALS: BMI 29.9
[2022-12-17] MEDS ORDERED: Sodium Chloride 0.9% 500 ML IV SCH (01:45)
[2022-12-17] MEDS: Ipratropium/Albuterol 3 ML NEB NEB SCH ×6 (02:17→22:57)
[2022-12-17 05:06] LABS: #Lymphocytes 1.2 thou/uL (1.20-3.40); #Monocytes 0.2 thou/uL (0.11-0.59); %Basophils 0.7 % (0.0-1.0); %Eosinophils 0.2 % (0.0-10.0); %Lymphocytes 16.4 % (21.0-51.0); %Monocytes 2.6 % (0.0-10.0); %Neutrophils 80.1 % (42.0-75.0); Hemoglobin 13.8 g/dL (12.0-16.0); Mean Corpuscular HGB CONC 32.8 g/dL (32.0-36.0); Mean Corpuscular Hemoglobin 28.6 pg (27.0-31.0); Mean Corpuscular Volume 87.2 fl (78.0-98.0); Mean Platelet Volume 8.5 fL (7.4-10.4); Platelet Count 347 10x3/uL (130-400); RBC Distribution Width 13.1 % (11.5-14.5); Red Blood Cell (RBC) Count 4.83 mill/uL (4.20-5.40); White Blood Cell (WBC) Count 7.5 10x3/uL (4.8-10.8)
[2022-12-17] MEDS: methylPREDNISolone Sod Succ 40 MG VIAL IVP SCH ×3 (05:10→16:27)
[2022-12-17 05:35] LABS: Anion Gap 16 mmol/L (10-20); BUN (Urea Nitrogen) 34 mg/dL (9.8-20.1); Calc. Creatinine Clearance 84 mL/min (70-130); Calcium 9.5 mg/dL (7.8-10.44); Carbon Dioxide 23 mmol/L (22-29); Chloride 100 mmol/L (98-107); Estimated GFR 75; Glucose 218 mg/dL (70-105); Potassium 4.5 mmol/L (3.5-5.1); Sodium 134 mmol/L (136-145)
[2022-12-17] MEDS: HumaLOG 300 UNITS/3 ML VIAL SC PRN ×3 (06:01→18:10)
[2022-12-17 07:50] LABS: Amphetamine Detected (NotDetected); Barbiturates Screen Not Detected (NotDetected); Benzodiazepine Screen Not Detected (NotDetected); Cocaine Metabolite Screen Not Detected (NotDetected); Methadone Not Detected (NotDetected); Methamphetamine Detected (NotDetected); Opiate Screen Not Detected (NotDetected); Oxycodone Screen Not Detected (NotDetected); Phencyclidine (PCP) Not Detected (NotDetected); THC/Cannabinoid Screen Detected (NotDetected); Tricyclic Screen Not Detected (NotDetected)
[2022-12-17] MEDS ORDERED: hydrOXYzine 25 MG TAB PO PRN (07:59)
[2022-12-17] MEDS ORDERED: tiZANidine HCl 4 MG TAB PO PRN (08:33)
[2022-12-17] MEDS ORDERED: Mometasone 200 MCG/Formoterol 5 MCG 120 PUFF INHALER INH SCH (09:00)
[2022-12-17] MEDS ORDERED: DOXYCYCLINE HYCLATE 100 MG PO SCH (09:00)
[2022-12-17] MEDS: Mometasone 200 MCG/Formoterol 5 MCG 120 PUFF INHALER INH SCH ×2 (09:08→19:38)
[2022-12-17] MEDS: Lisinopril 5 MG TAB PO SCH (09:15)
[2022-12-17] MEDS: metFORMIN 500 MG TAB PO SCH ×2 (09:15→16:28)
[2022-12-17] MEDS: OXcarbazepine 300 MG TAB PO SCH ×2 (09:15→21:19)
[2022-12-17] MEDS: Aripiprazole 15 MG TAB PO SCH (09:15)
[2022-12-17] MEDS: Gabapentin 400 MG CAP PO SCH ×3 (09:16→21:19)
[2022-12-17] MEDS: Carvedilol 3.125 MG TAB PO SCH ×2 (09:16→16:28)
[2022-12-17] MEDS ORDERED: Ipratropium Bromide 2.5 ml Neb NEB SCH (13:00)
[2022-12-17] MEDS ORDERED: cloNIDine 0.1 MG TAB PO SCH (21:00)
[2022-12-17] MEDS ORDERED: PARoxetine 20 MG TAB PO SCH (21:00)
[2022-12-18] MEDS: methylPREDNISolone Sod Succ 40 MG VIAL IVP SCH ×2 (00:13→06:07)
[2022-12-18] MEDS: Ipratropium/Albuterol 3 ML NEB NEB SCH ×3 (03:07→10:13)
[2022-12-18] MEDS: HumaLOG 300 UNITS/3 ML VIAL SC PRN ×2 (06:07→12:30)
[2022-12-18 06:16] LABS: #Lymphocytes 2.1 thou/uL (1.20-3.40); #Monocytes 0.3 thou/uL (0.11-0.59); #Neutrophils 6.4 thou/uL (1.40-6.50); %Basophils 0.2 % (0.0-1.0); %Eosinophils 0.1 % (0.0-10.0); %Lymphocytes 23.8 % (21.0-51.0); %Monocytes 3.8 % (0.0-10.0); %Neutrophils 72.1 % (42.0-75.0); Hemoglobin 12.6 g/dL (12.0-16.0); Mean Corpuscular HGB CONC 32.3 g/dL (32.0-36.0); Mean Corpuscular Hemoglobin 28.2 pg (27.0-31.0); Mean Corpuscular Volume 87.5 fl (78.0-98.0); Mean Platelet Volume 7.7 fL (7.4-10.4); Platelet Count 361 10x3/uL (130-400); RBC Distribution Width 13.3 % (11.5-14.5); Red Blood Cell (RBC) Count 4.47 mill/uL (4.20-5.40); White Blood Cell (WBC) Count 8.8 10x3/uL (4.8-10.8)
[2022-12-18 06:36] LABS: Anion Gap 14 mmol/L (10-20); BUN (Urea Nitrogen) 30 mg/dL (9.8-20.1); Calc. Creatinine Clearance 100 mL/min (70-130); Calcium 9.2 mg/dL (7.8-10.44); Carbon Dioxide 20 mmol/L (22-29); Chloride 102 mmol/L (98-107); Estimated GFR 94; Glucose 229 mg/dL (70-105); Magnesium 1.5 mg/dL (1.6-2.6); Potassium 5.1 mmol/L (3.5-5.1); Sodium 131 mmol/L (136-145)
[2022-12-18] MEDS ORDERED: Electrolyte Replacement Protocol 1 EACH FS SCH (07:00)
[2022-12-18] MEDS ORDERED: Electrolyte Replacement Protocol FS PRN (07:00)
[2022-12-18] MEDS ORDERED: Nitroglycerin 0.4 MG TAB (25 Tab Bottle) SL PRN (07:02)
[2022-12-18] MEDS: Mometasone 200 MCG/Formoterol 5 MCG 120 PUFF INHALER INH SCH (07:22)
[2022-12-18 07:29] LABS: Troponin I Less than 0.010 ng/mL (< 0.028)
[2022-12-18] MEDS ORDERED: Magnesium 2 GM/50 ML(in water) 2 GM in Premix Bag 1 BAG IVPB SCH (08:00)
[2022-12-18] MEDS ORDERED: Aspirin 325 mg Enteric Coated Tablet PO SCH (09:00)
[2022-12-18] MEDS: Lisinopril 5 MG TAB PO SCH (09:16)
[2022-12-18] MEDS: metFORMIN 500 MG TAB PO SCH (09:16)
[2022-12-18] MEDS: Gabapentin 400 MG CAP PO SCH (09:17)
[2022-12-18] MEDS: Carvedilol 3.125 MG TAB PO SCH (09:17)
[2022-12-18] MEDS: Aripiprazole 15 MG TAB PO SCH (09:25)
[2022-12-18] MEDS: OXcarbazepine 300 MG TAB PO SCH (09:41)
[2022-12-18] MEDS ORDERED: predniSONE 20 MG TAB PO SCH (10:45)
[2022-12-18 11:49] VITALS: BP 108/68; TEMP 97.5
[2022-12-19] MEDS ORDERED: predniSONE 20 MG TAB PO SCH (08:00)
== END 2022-12-18 12:40 | disposition home or self-care (01) | DRG 189 ==
LOC: T4-B 14:12 → 2NO 21:22 → MSONC 12-17 16:13
PROVIDERS: ADMIT Hospitalist; ATTEND Internal Medicine
DX: J96.01 Acute respiratory failure with hypoxia (principal); J44.1 Chronic obstructive pulmonary disease with (acute) exacerbation; N17.9 Acute kidney failure, unspecified; I50.42 Chronic combined systolic (congestive) and diastolic (congestive) heart failure; I11.0 Hypertensive heart disease with heart failure; E11.9 Type 2 diabetes mellitus without complications; E03.9 Hypothyroidism, unspecified; F31.9 Bipolar disorder, unspecified; F17.210 Nicotine dependence, cigarettes, uncomplicated; E86.0 Dehydration; Z88.8 Allergy status to other drugs, medicaments and biological substances; Z79.84 Long term (current) use of oral hypoglycemic drugs; Z79.899 Other long term (current) drug therapy; Z79.52 Long term (current) use of systemic steroids; Z79.51 Long term (current) use of inhaled steroids; Z90.710 Acquired absence of both cervix and uterus; Z90.49 Acquired absence of other specified parts of digestive tract
CPT/HCPCS: 36415; 36416; 71045; 80048; 80306; 83735; 84484; 85025; 93005; 93010; 94640; J1815; J1956; J2920; J3475; J7030; J7512; J7620

== ENCOUNTER 2023-01-16 18:38 | Inpatient (IN) | payer OTHER ==
[2023-01-16] MEDS ORDERED: Cefepime 2 GM VIAL ONE (18:42)
[2023-01-16] MEDS ORDERED: Magnesium 2 GM/50 ML BAG (IN WATER) ONE (18:44)
[2023-01-16] MEDS ORDERED: Ipratropium/Albuterol 3 ML NEB ONE ×2 (18:49)
[2023-01-16 18:53] LABS: Actual Bicarbonate (HCO3v) 19 mEq/L (22-28); Analyzer IN Cardio ER; Base Excess -9.9 mEq/L (-2.0 to +3.0); Calcium, Ionized (venous) 1.03 mmol/L (1.16-1.32); Chloride (VBG) 98 mmol/L (98-106); Hemoglobin (Hb) 14.1 g/dL (11.7-16.0); Sodium 131.5 mmol/L (133-146)
[2023-01-16 19:00] LABS: Hemoglobin 13.6 g/dL (12.0-16.0); Mean Corpuscular HGB CONC 33.3 g/dL (32.0-36.0); Mean Corpuscular Hemoglobin 28.9 pg (27.0-31.0); Mean Corpuscular Volume 86.8 fl (78.0-98.0); Mean Platelet Volume 8.7 fL (7.4-10.4); Platelet Count 296 10x3/uL (130-400); RBC Distribution Width 13.8 % (11.5-14.5); Red Blood Cell (RBC) Count 4.69 mill/uL (4.20-5.40); White Blood Cell (WBC) Count 15.9 10x3/uL (4.8-10.8)
[2023-01-16 19:15] LABS: Band 31 % (5-11); Lymphocytes 13 % (21-51); MDiff Complete? YES; Metamyelocyte 4 % (0-0); Monocytes 8 % (0-10); Neutrophil 43 % (42-75); Platelet Morphology Comment Appears Adequate; RBC Morphology Normal; Toxic Granulation SLIGHT; Vacuoles SLIGHT
[2023-01-16] MEDS ORDERED: Ketamine In 0.9 % NaCl 50 MG/5 ML SYRINGE ONE ×3 (19:20→21:37)
[2023-01-16 19:23] LABS: ALT (SGPT) 31 U/L (8-55); AST (SGOT) 27 U/L (5-34); Albumin 4.1 g/dL (3.5-5.0); Alkaline Phosphatase 152 U/L (40-110); Anion Gap 22 mmol/L (10-20); BUN (Urea Nitrogen) 28 mg/dL (9.8-20.1); Bilirubin, Total 0.2 mg/dL (0.2-1.2); Calc. Creatinine Clearance 0 mL/min (70-130); Calcium 9.6 mg/dL (7.8-10.44); Carbon Dioxide 18 mmol/L (22-29); Chloride 99 mmol/L (98-107); Estimated GFR 55; Globulin 3.7 g/dL (2.4-3.5); Protein, Total 7.8 g/dL (6.0-8.3); Sodium 135 mmol/L (136-145)
[2023-01-16 19:29] LABS: Glucose 427 mg/dL (70-105)
[2023-01-16] MEDS ORDERED: Propofol 1,000 MG/100 ML VIAL IV ONE (19:31)
[2023-01-16] MEDS ORDERED: Azithromycin 500 MG VIAL ONE (19:37)
[2023-01-16] MEDS ORDERED: Fentanyl CADD 100 ML IV SCH (19:45)
[2023-01-16 19:46] LABS: Actual Bicarbonate (HCO3v) 23 mEq/L (22-28); Analyzer IN Cardio ER; Base Excess -6.8 mEq/L (-2.0 to +3.0); Calcium, Ionized (venous) 1.21 mmol/L (1.16-1.32); Chloride (VBG) 99 mmol/L (98-106); Hemoglobin (Hb) 13.2 g/dL (11.7-16.0); Potassium (VBG) 3.92 mmol/L (3.70-5.30); Sodium 135.7 mmol/L (133-146)
[2023-01-16] MEDS ORDERED: Dextrose 50% Abboject 50 ML SYRINGE SLOW IVP PRN (20:08)
[2023-01-16] MEDS ORDERED: Dextrose 5% in Water 1,000 ML IV PRN (20:08)
[2023-01-16] MEDS ORDERED: HumaLOG 300 UNITS/3 ML VIAL SC PRN (20:08)
[2023-01-16 20:12] LABS: Bacteria/HPF 4+ HPF (None Seen); Bilirubin Negative (Negative); Blood, Urine 3+ (Negative); Clarity Turbid (Clear); Glucose, Urine (Dipstick) Greater than 1000 mg/dL (Negative); Ketone, Urine 60 mg/dL (Negative); Leukocyte Negative Leu/uL (Negative); Mucous/LPF Rare LPF (<2+); Nitrite Negative (Negative); Protein, Urine (Dipstick) 300 mg/dL (Neg-Trace); Specific Gravity, Urine 1.026 (1.002-1.036); Squamous Epithelial 0-3 HPF (0-3); Urobilinogen Normal mg/dL (Less than 2); WBC/HPF 0-3 HPF (0-3)
[2023-01-16 20:13] LABS: SARS-CoV-2 NAA Rapid Test Not Detected (NotDetected)
[2023-01-16 20:14] LABS: Actual Bicarbonate (HCO3a) 17.8 mEq/L (22-28); Analyzer IN Cardio ER; Base Excess (BEa) -11.1 mEq/L (-2.0 to +3.0); CO2 Tension 51.9 mmHg (35.0-45.0); Calcium, Ionized (arterial) 1.23 mmol/L (1.12-1.30); Carboxyhemoglobin (COHb) 0.1 gm% (0.0-3.0); Hemoglobin (Hb) 12.6 g/dL (12.0-16.0); O2 Tension (PaO2), arterial 86.7 mmHg (80.0-100.0); Potassium - ABG Lab 3.41 mmol/L (3.70-5.30)
[2023-01-16] MEDS ORDERED: Ipratropium/Albuterol 3 ML NEB NEB PRN (22:13)
[2023-01-16] MEDS ORDERED: Propofol BOLUS 1,000 MG/100 ML VIAL IV PRN (22:15)
[2023-01-16] MEDS ORDERED: DISCONTINUE PREVIOUS NARCOTIC PAIN MEDICATIONS AND BENZODIAZEPINES FS SCH (22:15)
[2023-01-16] MEDS ORDERED: Fentanyl BOLUS 250 ML IVPB PRN (22:15)
[2023-01-16] MEDS ORDERED: Ventilator Sedation Protocol 1 EACH FS SCH (22:15)
[2023-01-16] MEDS: Ipratropium/Albuterol 3 ML NEB NEB SCH (22:19)
[2023-01-16] MEDS ORDERED: Sodium Chloride 0.9% 1,000 ML IV SCH (22:30)
[2023-01-16] MEDS ORDERED: Electrolyte Replacement Protocol FS SCH (22:33)
[2023-01-16] MEDS: HumaLOG 300 UNITS/3 ML VIAL SC PRN (22:39)
[2023-01-16] MEDS: Lorazepam 2 MG/ML VIAL SLOW IVP PRN (22:40)
[2023-01-16] MEDS: Propofol 1,000 MG/100 ML VIAL IV PRN (22:40)
[2023-01-16 23:12] LABS: Actual Bicarbonate (HCO3a) 20.6 mEq/L (22-28); Base Excess (BEa) -8.5 mEq/L (-2.0 to +3.0); CO2 Tension 58.9 mmHg (35.0-45.0); Calcium, Ionized (arterial) 1.23 mmol/L (1.12-1.30); Carboxyhemoglobin (COHb) 0.7 gm% (0.0-3.0); Hemoglobin (Hb) 12.6 g/dL (12.0-16.0); O2 Tension (PaO2), arterial 69.3 mmHg (80.0-100.0); Potassium - ABG Lab 3.62 mmol/L (3.70-5.30)
[2023-01-16 23:22] LABS: Puncture Site LRA; pH, Arterial 7.16 (7.35-7.45)
[2023-01-16 23:23] LABS: ALV-art Gradient 142.275 mmHg (0-20)
[2023-01-16] MEDS: methylPREDNISolone Sod Succ 40 MG VIAL IVP SCH (23:44)
[2023-01-16] MEDS ORDERED: HUMULIN R 100 UNITS in Sodium Chloride 0.9% 100 ML IVPB SCH (23:45)
[2023-01-16] MEDS ORDERED: Sodium Chloride 0.9% 1,000 ML IV PRN ×4 (23:57)
[2023-01-16] MEDS ORDERED: Dextrose 5 %-0.45 % NaCl 1,000 ML IV PRN (23:57)
[2023-01-16] MEDS ORDERED: D5 1/2 NS w/20 mEq KCL 1,000 ML IV PRN (23:57)
[2023-01-16] MEDS ORDERED: NS 0.9% w/ 20 MEQ KCL 1,000 ML IV PRN ×2 (23:57)
[2023-01-16 23:59] LABS: Troponin I 0.097 ng/mL (< 0.028)
[2023-01-17 00:16] LABS: Legionella Urinary Ag Negative (Negative); Strep pneumo Urine Ag NEGATIVE (NEGATIVE)
[2023-01-17] MEDS: Vecuronium 10 MG VIAL IVP PRN ×10 (00:35→20:36)
[2023-01-17 00:36] LABS: Anion Gap 17 mmol/L (10-20); BUN (Urea Nitrogen) 29 mg/dL (9.8-20.1); Calc. Creatinine Clearance 64 mL/min (70-130); Carbon Dioxide 17 mmol/L (22-29); Chloride 105 mmol/L (98-107); Estimated GFR 57; Glucose 372 mg/dL (70-105); Potassium 3.8 mmol/L (3.5-5.1); Sodium 135 mmol/L (136-145)
[2023-01-17] MEDS: Sodium Chloride 0.9% 1,000 ML IV SCH ×2 (02:00→11:31)
[2023-01-17] MEDS: Ipratropium/Albuterol 3 ML NEB NEB SCH ×2 (02:13→07:52)
[2023-01-17] MEDS: Cefepime 2 GM in Sodium Chloride 0.9% 100 ML IVPB SCH ×2 (05:22→17:04)
[2023-01-17] MEDS: methylPREDNISolone Sod Succ 40 MG VIAL IVP SCH ×4 (05:22→23:35)
[2023-01-17 06:24] LABS: Lactic Acid 1.6 mmol/L (0.5-2.2)
[2023-01-17 06:36] LABS: Anion Gap 17 mmol/L (10-20); BUN (Urea Nitrogen) 30 mg/dL (9.8-20.1); Calc. Creatinine Clearance 84 mL/min (70-130); Calcium 9.2 mg/dL (7.8-10.44); Carbon Dioxide 16 mmol/L (22-29); Chloride 110 mmol/L (98-107); Estimated GFR 79; Glucose 127 mg/dL (70-105); Potassium 3.6 mmol/L (3.5-5.1); Sodium 139 mmol/L (136-145)
[2023-01-17 06:37] LABS: Band 29 % (5-11); Hemoglobin 13.1 g/dL (12.0-16.0); Lymphocytes 7 % (21-51); MDiff Complete? YES; Mean Corpuscular HGB CONC 28.8 g/dL (32.0-36.0); Mean Corpuscular Volume 90.2 fl (78.0-98.0); Mean Platelet Volume 8.4 fL (7.4-10.4); Monocytes 18 % (0-10); Neutrophil 46 % (42-75); Platelet Count 260 10x3/uL (130-400); Platelet Morphology Comment Appears Adequate; RBC Morphology Normal; Red Blood Cell (RBC) Count 5.04 mill/uL (4.20-5.40); White Blood Cell (WBC) Count 17.7 10x3/uL (4.8-10.8)
[2023-01-17 07:33] LABS: Actual Bicarbonate (HCO3a) 22.9 mEq/L (22-28); CO2 Tension 55.6 mmHg (35.0-45.0); Calcium, Ionized (arterial) 1.25 mmol/L (1.12-1.30); Carboxyhemoglobin (COHb) 0.4 gm% (0.0-3.0); Hemoglobin (Hb) 12.1 g/dL (12.0-16.0); O2 Tension (PaO2), arterial 93.1 mmHg (80.0-100.0); Potassium - ABG Lab 3.64 mmol/L (3.70-5.30); pH, Arterial 7.23 (7.35-7.45)
[2023-01-17 07:34] LABS: Puncture Site RRA
[2023-01-17] MEDS ORDERED: methylPREDNISolone Sod Succ/PF 125 MG/2 ML VIAL IVP SCH (09:00)
[2023-01-17] MEDS: Pantoprazole 40 MG VIAL IVP SCH (09:26)
[2023-01-17 09:30] LABS: ALT (SGPT) 49 U/L (8-55); AST (SGOT) 46 U/L (5-34); Albumin 3.5 g/dL (3.5-5.0); Alkaline Phosphatase 232 U/L (40-110); Anion Gap 14 mmol/L (10-20); BUN (Urea Nitrogen) 31 mg/dL (9.8-20.1); Bilirubin, Total Less than 0.2 mg/dL (0.2-1.2); Calc. Creatinine Clearance 88 mL/min (70-130); Calcium 9.3 mg/dL (7.8-10.44); Carbon Dioxide 23 mmol/L (22-29); Chloride 107 mmol/L (98-107); Estimated GFR 83; Globulin 3.2 g/dL (2.4-3.5); Glucose 149 mg/dL (70-105); Magnesium 2.2 mg/dL (1.6-2.6); Potassium 3.7 mmol/L (3.5-5.1); Protein, Total 6.7 g/dL (6.0-8.3); Sodium 140 mmol/L (136-145)
[2023-01-17] MEDS: Propofol 1,000 MG/100 ML VIAL IV PRN ×2 (11:29→18:55)
[2023-01-17] MEDS: Fentanyl CADD 100 ML IV SCH (11:35)
[2023-01-17] MEDS: Ipratropium Bromide 2.5 ml Neb NEB SCH ×5 (13:18→23:49)
[2023-01-17] MEDS: Lorazepam 2 MG/ML VIAL SLOW IVP PRN ×3 (14:24→18:55)
[2023-01-17] MEDS: HumaLOG 300 UNITS/3 ML VIAL SC PRN ×2 (14:28→19:36)
[2023-01-17 15:37] LABS: pH (venous) 7.17 (7.32-7.43)
[2023-01-17 15:38] LABS: Potassium (VBG) 9.08 mmol/L (3.70-5.30)
[2023-01-17 15:38] LABS: pH (venous) 7.16 (7.32-7.43)
[2023-01-17 15:39] LABS: pH, Arterial 7.15 (7.35-7.45)
[2023-01-17] MEDS: Azithromycin 500 MG in Sodium Chloride 0.9% 250 ML 250 ML IVPB SCH (18:55)
[2023-01-18] MEDS: Vecuronium 10 MG VIAL IVP PRN ×5 (02:00→20:31)
[2023-01-18] MEDS: Ipratropium Bromide 2.5 ml Neb NEB SCH ×2 (02:53→07:43)
[2023-01-18 04:25] LABS: Band 19 % (5-11); Hemoglobin 10.8 g/dL (12.0-16.0); Lymphocytes 7 % (21-51); MDiff Complete? YES; Mean Corpuscular HGB CONC 31.9 g/dL (32.0-36.0); Mean Corpuscular Hemoglobin 28.3 pg (27.0-31.0); Mean Corpuscular Volume 88.6 fl (78.0-98.0); Mean Platelet Volume 8.1 fL (7.4-10.4); Metamyelocyte 2 % (0-0); Monocytes 6 % (0-10); Neutrophil 66 % (42-75); Platelet Count 298 10x3/uL (130-400); Platelet Morphology Comment Appears Adequate; RBC Distribution Width 14.3 % (11.5-14.5); RBC Morphology Normal; White Blood Cell (WBC) Count 16.9 10x3/uL (4.8-10.8)
[2023-01-18] MEDS: Fentanyl CADD 100 ML IV SCH (05:11)
[2023-01-18] MEDS: methylPREDNISolone Sod Succ 40 MG VIAL IVP SCH ×3 (05:11→23:35)
[2023-01-18] MEDS: Cefepime 2 GM in Sodium Chloride 0.9% 100 ML IVPB SCH ×2 (05:11→16:16)
[2023-01-18 05:54] LABS: Anion Gap 19 mmol/L (10-20); BUN (Urea Nitrogen) 37 mg/dL (9.8-20.1); Calc. Creatinine Clearance 92 mL/min (70-130); Calcium 9.2 mg/dL (7.8-10.44); Carbon Dioxide 15 mmol/L (22-29); Chloride 112 mmol/L (98-107); Estimated GFR 87; Glucose 175 mg/dL (70-105); Potassium 5.2 mmol/L (3.5-5.1); Sodium 141 mmol/L (136-145)
[2023-01-18 07:33] LABS: Actual Bicarbonate (HCO3a) 22.8 mEq/L (22-28); Calcium, Ionized (arterial) 1.29 mmol/L (1.12-1.30); Carboxyhemoglobin (COHb) 0.2 gm% (0.0-3.0); Hemoglobin (Hb) 11.7 g/dL (12.0-16.0); Potassium - ABG Lab 4.54 mmol/L (3.70-5.30)
[2023-01-18] MEDS: Ipratropium/Albuterol 3 ML NEB NEB SCH ×6 (07:42→21:45)
[2023-01-18] MEDS: Lorazepam 2 MG/ML VIAL SLOW IVP PRN ×3 (08:25→20:31)
[2023-01-18] MEDS: Pantoprazole 40 MG VIAL IVP SCH (08:27)
[2023-01-18] MEDS: Propofol 1,000 MG/100 ML VIAL IV PRN ×2 (08:28→20:31)
[2023-01-18] MEDS: HumaLOG 300 UNITS/3 ML VIAL SC PRN (08:50)
[2023-01-18 08:54] LABS: pH, Arterial 7.19 (7.35-7.45)
[2023-01-18 08:55] LABS: CO2 Tension 61.4 mmHg (35.0-45.0)
[2023-01-18 08:57] LABS: Puncture Site RRA
[2023-01-18] MEDS ORDERED: NPH, Human Insulin Isophane 300 UNITS/3 ML VIAL SC SCH (09:00)
[2023-01-18] MEDS: Sodium Bicarbonate 70 MEQ in Sodium Chloride 0.45% 1,000 ML IV SCH (12:56)
[2023-01-18] MEDS: Morphine 2 MG/ML VIAL SLOW IVP PRN (16:19)
[2023-01-18] MEDS: Gabapentin 400 MG CAP PER TUBE SCH ×2 (16:19→20:31)
[2023-01-18] MEDS: Azithromycin 500 MG in Sodium Chloride 0.9% 250 ML 250 ML IVPB SCH (20:48)
[2023-01-18] MEDS: Insulin NPH Human Isophane 100 UNITS/ML (10 ML VIAL) SC SCH (20:59)
[2023-01-19] MEDS: Ipratropium/Albuterol 3 ML NEB NEB SCH ×8 (00:16→22:16)
[2023-01-19] MEDS: Vecuronium 10 MG VIAL IVP PRN ×9 (00:47→23:04)
[2023-01-19] MEDS: HumaLOG 300 UNITS/3 ML VIAL SC PRN ×4 (00:47→21:13)
[2023-01-19] MEDS: Sodium Bicarbonate 70 MEQ in Sodium Chloride 0.45% 1,000 ML IV SCH ×2 (02:00→15:16)
[2023-01-19] MEDS: Propofol 1,000 MG/100 ML VIAL IV PRN ×5 (03:14→23:04)
[2023-01-19] MEDS: Lorazepam 2 MG/ML VIAL SLOW IVP PRN ×6 (03:14→23:04)
[2023-01-19] MEDS: Cefepime 2 GM in Sodium Chloride 0.9% 100 ML IVPB SCH ×2 (05:19→17:43)
[2023-01-19] MEDS: methylPREDNISolone Sod Succ 40 MG VIAL IVP SCH ×4 (05:19→23:04)
[2023-01-19 06:55] LABS: Hemoglobin 11.8 g/dL (12.0-16.0); Mean Corpuscular HGB CONC 32.1 g/dL (32.0-36.0); Mean Corpuscular Volume 90.4 fl (78.0-98.0); Mean Platelet Volume 8.1 fL (7.4-10.4); Platelet Count 292 10x3/uL (130-400); RBC Distribution Width 14.6 % (11.5-14.5); Red Blood Cell (RBC) Count 4.06 mill/uL (4.20-5.40); White Blood Cell (WBC) Count 21.6 10x3/uL (4.8-10.8)
[2023-01-19 07:06] LABS: Anion Gap 13 mmol/L (10-20); BUN (Urea Nitrogen) 41 mg/dL (9.8-20.1); Calc. Creatinine Clearance 102 mL/min (70-130); Calcium 9.2 mg/dL (7.8-10.44); Carbon Dioxide 24 mmol/L (22-29); Chloride 112 mmol/L (98-107); Estimated GFR 95; Glucose 137 mg/dL (70-105); Potassium 4.2 mmol/L (3.5-5.1); Sodium 145 mmol/L (136-145)
[2023-01-19] MEDS: Gabapentin 400 MG CAP PER TUBE SCH ×3 (07:39→19:14)
[2023-01-19] MEDS: Lansoprazole 15 MG/5 ML (BATCHED)UDCUP PER TUBE SCH (07:40)
[2023-01-19] MEDS: Insulin NPH Human Isophane 100 UNITS/ML (10 ML VIAL) SC SCH ×2 (07:41→19:15)
[2023-01-19 07:57] LABS: Actual Bicarbonate (HCO3a) 28.4 mEq/L (22-28); Base Excess (BEa) 0.6 mEq/L (-2.0 to +3.0); Carboxyhemoglobin (COHb) 0.6 gm% (0.0-3.0); Hemoglobin (Hb) 12.2 g/dL (12.0-16.0); O2 Tension (PaO2), arterial 84.5 mmHg (80.0-100.0); Potassium - ABG Lab 3.97 mmol/L (3.70-5.30); pH, Arterial 7.29 (7.35-7.45)
[2023-01-19 07:59] LABS: CO2 Tension 60.6 mmHg (35.0-45.0); Puncture Site RRA
[2023-01-19] MEDS: Morphine 2 MG/ML VIAL SLOW IVP PRN ×4 (09:06→19:21)
[2023-01-19 09:39] LABS: Band 12 % (5-11); Lymphocytes 13 % (21-51); MDiff Complete? YES; Metamyelocyte 2 % (0-0); Monocytes 5 % (0-10); Myelocyte 4 % (0-0); Neutrophil 63 % (42-75); Platelet Morphology Comment Appears Adequate; Polychromasia SLIGHT = 2-3 cells (100X) (0-2/hpf); Reactive Lymphocytes 1 % (0-10)
[2023-01-19] MEDS: Azithromycin 500 MG in Sodium Chloride 0.9% 250 ML 250 ML IVPB SCH (19:14)
[2023-01-20] MEDS: Ipratropium/Albuterol 3 ML NEB NEB SCH ×8 (01:49→21:40)
[2023-01-20] MEDS: HumaLOG 300 UNITS/3 ML VIAL SC PRN ×5 (02:53→23:34)
[2023-01-20] MEDS: Propofol 1,000 MG/100 ML VIAL IV PRN ×5 (03:20→23:30)
[2023-01-20] MEDS: Vecuronium 10 MG VIAL IVP PRN ×9 (03:20→21:58)
[2023-01-20] MEDS: Lorazepam 2 MG/ML VIAL SLOW IVP PRN ×7 (03:20→21:58)
[2023-01-20 04:22] LABS: Anion Gap 15 mmol/L (10-20); BUN (Urea Nitrogen) 39 mg/dL (9.8-20.1); Calc. Creatinine Clearance 113 mL/min (70-130); Calcium 9.1 mg/dL (7.8-10.44); Carbon Dioxide 25 mmol/L (22-29); Chloride 108 mmol/L (98-107); Estimated GFR 104; Glucose 218 mg/dL (70-105); Potassium 4.1 mmol/L (3.5-5.1); Sodium 144 mmol/L (136-145)
[2023-01-20 04:38] LABS: Hemoglobin 10.7 g/dL (12.0-16.0); Hypochromia SLIGHT = 6-15 cells (100X) (0-5/hpf); Lymphocytes 15 % (21-51); MDiff Complete? YES; Mean Corpuscular Hemoglobin 27.5 pg (27.0-31.0); Mean Corpuscular Volume 88.7 fl (78.0-98.0); Mean Platelet Volume 8.3 fL (7.4-10.4); Metamyelocyte 1 % (0-0); Monocytes 3 % (0-10); Myelocyte 3 % (0-0); Neutrophil 78 % (42-75); Platelet Count 315 10x3/uL (130-400); Platelet Morphology Comment Appears Adequate; RBC Distribution Width 14.5 % (11.5-14.5); Red Blood Cell (RBC) Count 3.88 mill/uL (4.20-5.40); Tear Drops SLIGHT = 2-5 cells (100X) (0-1/hpf); White Blood Cell (WBC) Count 14.5 10x3/uL (4.8-10.8)
[2023-01-20] MEDS: methylPREDNISolone Sod Succ 40 MG VIAL IVP SCH ×4 (05:03→23:30)
[2023-01-20] MEDS: Cefepime 2 GM in Sodium Chloride 0.9% 100 ML IVPB SCH ×2 (05:03→17:02)
[2023-01-20] MEDS: Sodium Bicarbonate 70 MEQ in Sodium Chloride 0.45% 1,000 ML IV SCH (05:29)
[2023-01-20 07:23] LABS: Actual Bicarbonate (HCO3a) 32.7 mEq/L (22-28); Base Excess (BEa) 5.9 mEq/L (-2.0 to +3.0); CO2 Tension 59.5 mmHg (35.0-45.0); Calcium, Ionized (arterial) 1.24 mmol/L (1.12-1.30); Carboxyhemoglobin (COHb) 0.3 gm% (0.0-3.0); Hemoglobin (Hb) 10.7 g/dL (12.0-16.0); O2 Tension (PaO2), arterial 85.5 mmHg (80.0-100.0); Potassium - ABG Lab 3.56 mmol/L (3.70-5.30); pH, Arterial 7.358 (7.35-7.45)
[2023-01-20 07:24] LABS: Puncture Site RRA
[2023-01-20 07:25] LABS: ALV-art Gradient 125.325 mmHg (0-20)
[2023-01-20] MEDS ORDERED: Furosemide 20 MG/2 ML VIAL IVP SCH (08:45)
[2023-01-20] MEDS: Morphine 2 MG/ML VIAL SLOW IVP PRN ×4 (08:59→17:23)
[2023-01-20] MEDS: Lansoprazole 15 MG/5 ML (BATCHED)UDCUP PER TUBE SCH (09:06)
[2023-01-20] MEDS: Gabapentin 400 MG CAP PER TUBE SCH ×3 (09:06→20:31)
[2023-01-20] MEDS: Insulin NPH Human Isophane 100 UNITS/ML (10 ML VIAL) SC SCH ×2 (09:07→20:35)
[2023-01-20] MEDS ORDERED: Furosemide 20 MG/2 ML VIAL SLOW IVP SCH (16:15)
[2023-01-20] MEDS ORDERED: Fentanyl CADD 100 ML ONE (20:00)
[2023-01-20] MEDS: Fentanyl CADD 100 ML IV SCH (20:08)
[2023-01-21] MEDS: Vecuronium 10 MG VIAL IVP PRN ×2 (00:59→04:59)
[2023-01-21] MEDS: Lorazepam 2 MG/ML VIAL SLOW IVP PRN ×3 (00:59→20:06)
[2023-01-21] MEDS: Ipratropium/Albuterol 3 ML NEB NEB SCH ×8 (01:19→22:00)
[2023-01-21 04:44] LABS: Hemoglobin 11.8 g/dL (12.0-16.0); Mean Corpuscular HGB CONC 32.2 g/dL (32.0-36.0); Mean Corpuscular Hemoglobin 29.1 pg (27.0-31.0); Mean Corpuscular Volume 90.4 fl (78.0-98.0); Mean Platelet Volume 7.8 fL (7.4-10.4); Platelet Count 315 10x3/uL (130-400); RBC Distribution Width 14.5 % (11.5-14.5); Red Blood Cell (RBC) Count 4.06 mill/uL (4.20-5.40); White Blood Cell (WBC) Count 16.1 10x3/uL (4.8-10.8)
[2023-01-21] MEDS: Cefepime 2 GM in Sodium Chloride 0.9% 100 ML IVPB SCH ×2 (05:03→17:28)
[2023-01-21] MEDS: Propofol 1,000 MG/100 ML VIAL IV PRN ×3 (05:03→13:41)
[2023-01-21] MEDS: methylPREDNISolone Sod Succ 40 MG VIAL IVP SCH ×3 (05:04→17:28)
[2023-01-21 05:07] LABS: Anion Gap 16 mmol/L (10-20); BUN (Urea Nitrogen) 36 mg/dL (9.8-20.1); Calc. Creatinine Clearance 110 mL/min (70-130); Calcium 9.1 mg/dL (7.8-10.44); Carbon Dioxide 30 mmol/L (22-29); Chloride 105 mmol/L (98-107); Estimated GFR 104; Glucose 252 mg/dL (70-105); Sodium 147 mmol/L (136-145)
[2023-01-21] MEDS: HumaLOG 300 UNITS/3 ML VIAL SC PRN ×5 (05:17→20:57)
[2023-01-21 05:22] LABS: Band 4 % (5-11); Eosinophils 2 % (0-10); Lymphocytes 9 % (21-51); MDiff Complete? YES; Monocytes 7 % (0-10); Myelocyte 3 % (0-0); Neutrophil 75 % (42-75)
[2023-01-21 07:00] LABS: Actual Bicarbonate (HCO3a) 37.1 mEq/L (22-28); Base Excess (BEa) 10.3 mEq/L (-2.0 to +3.0); Calcium, Ionized (arterial) 1.19 mmol/L (1.12-1.30); Carboxyhemoglobin (COHb) 0.4 gm% (0.0-3.0); Hematocrit-ABG 31 % (36.0-47.0); Hemoglobin (Hb) 10.7 g/dL (12.0-16.0); O2 Tension (PaO2), arterial 63.4 mmHg (80.0-100.0); Potassium - ABG Lab 3.69 mmol/L (3.70-5.30)
[2023-01-21 07:09] LABS: ALV-art Gradient 107.775 mmHg (0-20); CO2 Tension 62.7 mmHg (35.0-45.0); Puncture Site RBA
[2023-01-21] MEDS: Lansoprazole 15 MG/5 ML (BATCHED)UDCUP PER TUBE SCH (08:27)
[2023-01-21] MEDS: Insulin NPH Human Isophane 100 UNITS/ML (10 ML VIAL) SC SCH ×2 (08:27→20:58)
[2023-01-21] MEDS: Gabapentin 400 MG CAP PER TUBE SCH ×3 (08:28→20:58)
[2023-01-21] MEDS ORDERED: Fentanyl CADD 100 ML ONE (14:54)
[2023-01-21] MEDS: Fentanyl CADD 100 ML IV SCH (14:58)
[2023-01-22] MEDS: methylPREDNISolone Sod Succ 40 MG VIAL IVP SCH ×5 (00:40→23:47)
[2023-01-22] MEDS: HumaLOG 300 UNITS/3 ML VIAL SC PRN ×4 (00:47→23:55)
[2023-01-22] MEDS: Ipratropium/Albuterol 3 ML NEB NEB SCH ×10 (00:59→23:58)
[2023-01-22] MEDS: Lorazepam 2 MG/ML VIAL SLOW IVP PRN ×3 (03:04→09:39)
[2023-01-22] MEDS ORDERED: Fentanyl CADD 100 ML ONE (04:44)
[2023-01-22 04:49] LABS: Hemoglobin 11.7 g/dL (12.0-16.0); Mean Corpuscular Hemoglobin 29.8 pg (27.0-31.0); Mean Corpuscular Volume 90.3 fl (78.0-98.0); Mean Platelet Volume 8.1 fL (7.4-10.4); Platelet Count 318 10x3/uL (130-400); RBC Distribution Width 14.3 % (11.5-14.5)
[2023-01-22] MEDS: Fentanyl CADD 100 ML IV SCH ×2 (04:49→18:10)
[2023-01-22 05:07] LABS: Anion Gap 14 mmol/L (10-20); BUN (Urea Nitrogen) 46 mg/dL (9.8-20.1); Calc. Creatinine Clearance 118 mL/min (70-130); Calcium 9.7 mg/dL (7.8-10.44); Carbon Dioxide 35 mmol/L (22-29); Chloride 104 mmol/L (98-107); Estimated GFR 105; Glucose 133 mg/dL (70-105); Potassium 4.7 mmol/L (3.5-5.1); Sodium 148 mmol/L (136-145)
[2023-01-22] MEDS: Cefepime 2 GM in Sodium Chloride 0.9% 100 ML IVPB SCH ×2 (05:38→18:20)
[2023-01-22 05:50] LABS: Lymphocytes 16 % (21-51); MDiff Complete? YES; Metamyelocyte 1 % (0-0); Monocytes 9 % (0-10); Neutrophil 74 % (42-75); Platelet Morphology Comment Appears Adequate; Polychromasia SLIGHT = 2-3 cells (100X) (0-2/hpf)
[2023-01-22 07:17] LABS: Actual Bicarbonate (HCO3a) 40.6 mEq/L (22-28); Base Excess (BEa) 13.4 mEq/L (-2.0 to +3.0); Calcium, Ionized (arterial) 1.22 mmol/L (1.12-1.30); Carboxyhemoglobin (COHb) 0.6 gm% (0.0-3.0); Hematocrit-ABG 35 % (36.0-47.0); Hemoglobin (Hb) 11.8 g/dL (12.0-16.0); Potassium - ABG Lab 4.83 mmol/L (3.70-5.30); pH, Arterial 7.411 (7.35-7.45)
[2023-01-22 07:20] LABS: CO2 Tension 65.4 mmHg (35.0-45.0); Puncture Site RRA
[2023-01-22] MEDS: Insulin NPH Human Isophane 100 UNITS/ML (10 ML VIAL) SC SCH ×2 (08:44→22:25)
[2023-01-22] MEDS: Gabapentin 400 MG CAP PER TUBE SCH ×3 (08:47→21:36)
[2023-01-22] MEDS: Lansoprazole 15 MG/5 ML (BATCHED)UDCUP PER TUBE SCH (08:47)
[2023-01-22] MEDS: Acetaminophen 650 MG/20.3 ML UDCUP PO PRN (21:37)
[2023-01-23] MEDS: Acetaminophen 650 MG/20.3 ML UDCUP PO PRN ×4 (02:08→16:05)
[2023-01-23] MEDS: HumaLOG 300 UNITS/3 ML VIAL SC PRN ×3 (03:09→16:14)
[2023-01-23] MEDS: Ipratropium/Albuterol 3 ML NEB NEB SCH ×7 (03:41→22:10)
[2023-01-23 03:53] LABS: #Basophils 0.1 thou/uL (0.0-0.2); #Eosinphils 0.1 thou/uL (0.0-0.7); #Lymphocytes 1.8 thou/uL (1.20-3.40); #Monocytes 0.8 thou/uL (0.11-0.59); #Neutrophils 11.1 thou/uL (1.40-6.50); %Basophils 0.5 % (0.0-1.0); %Eosinophils 0.4 % (0.0-10.0); %Lymphocytes 12.9 % (21.0-51.0); %Monocytes 5.9 % (0.0-10.0); %Neutrophils 80.2 % (42.0-75.0); Hemoglobin 11.1 g/dL (12.0-16.0); Mean Corpuscular HGB CONC 33.9 g/dL (32.0-36.0); Mean Corpuscular Hemoglobin 30.2 pg (27.0-31.0); Mean Corpuscular Volume 89.1 fl (78.0-98.0); Mean Platelet Volume 8.7 fL (7.4-10.4); Platelet Count 282 10x3/uL (130-400); RBC Distribution Width 14.3 % (11.5-14.5); Red Blood Cell (RBC) Count 3.66 mill/uL (4.20-5.40); White Blood Cell (WBC) Count 13.8 10x3/uL (4.8-10.8)
[2023-01-23 04:14] LABS: Anion Gap 13 mmol/L (10-20); BUN (Urea Nitrogen) 41 mg/dL (9.8-20.1); Calc. Creatinine Clearance 109 mL/min (70-130); Carbon Dioxide 35 mmol/L (22-29); Chloride 102 mmol/L (98-107); Estimated GFR 102; Glucose 229 mg/dL (70-105); Sodium 145 mmol/L (136-145)
[2023-01-23] MEDS: methylPREDNISolone Sod Succ 40 MG VIAL IVP SCH ×3 (06:31→17:36)
[2023-01-23] MEDS: Cefepime 2 GM in Sodium Chloride 0.9% 100 ML IVPB SCH ×2 (06:32→17:36)
[2023-01-23] MEDS: Fentanyl CADD 100 ML IV SCH ×2 (07:29→20:38)
[2023-01-23 07:49] LABS: Base Excess (BEa) 9.2 mEq/L (-2.0 to +3.0); Carboxyhemoglobin (COHb) 0.5 gm% (0.0-3.0); Hematocrit-ABG 34 % (36.0-47.0); Hemoglobin (Hb) 11.5 g/dL (12.0-16.0); O2 Tension (PaO2), arterial 67.5 mmHg (80.0-100.0); Potassium - ABG Lab 4.66 mmol/L (3.70-5.30)
[2023-01-23 07:53] LABS: Puncture Site RRA
[2023-01-23] MEDS: Gabapentin 400 MG CAP PER TUBE SCH ×3 (08:52→21:41)
[2023-01-23] MEDS: Lansoprazole 15 MG/5 ML (BATCHED)UDCUP PER TUBE SCH (08:53)
[2023-01-23] MEDS: Insulin NPH Human Isophane 100 UNITS/ML (10 ML VIAL) SC SCH ×2 (09:01→21:41)
[2023-01-23] MEDS: Lorazepam 2 MG/ML VIAL SLOW IVP PRN (13:07)
[2023-01-23] MEDS ORDERED: Ibuprofen 600 MG TAB PER TUBE PRN (15:07)
[2023-01-24] MEDS: methylPREDNISolone Sod Succ 40 MG VIAL IVP SCH ×4 (00:02→17:39)
[2023-01-24] MEDS: Insulin NPH Human Isophane 100 UNITS/ML (10 ML VIAL) SC SCH ×3 (00:04→20:57)
[2023-01-24] MEDS: Dexmedetomidine 1,000 MCG in Sodium Chloride 0.9% 250 ML 240 ML IVPB SCH ×2 (02:00→12:20)
[2023-01-24] MEDS: Lorazepam 2 MG/ML VIAL SLOW IVP PRN ×4 (02:20→22:29)
[2023-01-24] MEDS: Acetaminophen 650 MG/20.3 ML UDCUP PO PRN ×2 (02:24→11:56)
[2023-01-24] MEDS: Morphine 2 MG/ML VIAL SLOW IVP PRN (03:15)
[2023-01-24] MEDS: Ipratropium/Albuterol 3 ML NEB NEB SCH ×8 (04:06→22:15)
[2023-01-24] MEDS: HumaLOG 300 UNITS/3 ML VIAL SC PRN ×2 (04:08→20:52)
[2023-01-24 05:02] LABS: Anion Gap 16 mmol/L (10-20); BUN (Urea Nitrogen) 33 mg/dL (9.8-20.1); Calc. Creatinine Clearance 106 mL/min (70-130); Calcium 8.9 mg/dL (7.8-10.44); Carbon Dioxide 31 mmol/L (22-29); Chloride 99 mmol/L (98-107); Estimated GFR 102; Glucose 293 mg/dL (70-105); Potassium 5.7 mmol/L (3.5-5.1); Sodium 140 mmol/L (136-145)
[2023-01-24] MEDS: Cefepime 2 GM in Sodium Chloride 0.9% 100 ML IVPB SCH ×2 (05:09→17:39)
[2023-01-24 06:40] LABS: Hemoglobin 11.3 g/dL (12.0-16.0); Mean Corpuscular HGB CONC 31.2 g/dL (32.0-36.0); Mean Corpuscular Hemoglobin 27.6 pg (27.0-31.0); Mean Corpuscular Volume 88.5 fl (78.0-98.0); Mean Platelet Volume 10.6 fL (7.4-10.4); Platelet Count 232 10x3/uL (130-400); RBC Distribution Width 14.5 % (11.5-14.5); White Blood Cell (WBC) Count 15.4 10x3/uL (4.8-10.8)
[2023-01-24 07:06] LABS: Band 1 % (5-11); Lymphocytes 9 % (21-51); MDiff Complete? YES; Monocytes 5 % (0-10); Neutrophil 85 % (42-75); Platelet Morphology Comment Appears Adequate; Polychromasia SLIGHT = 2-3 cells (100X) (0-2/hpf)
[2023-01-24] MEDS: Gabapentin 400 MG CAP PER TUBE SCH ×3 (08:50→20:56)
[2023-01-24] MEDS: Lansoprazole 15 MG/5 ML (BATCHED)UDCUP PER TUBE SCH (08:50)
[2023-01-24] MEDS: Fentanyl CADD 100 ML IV SCH (12:03)
[2023-01-25] MEDS: methylPREDNISolone Sod Succ 40 MG VIAL IVP SCH ×5 (00:14→23:29)
[2023-01-25] MEDS: Acetaminophen 650 MG/20.3 ML UDCUP PO PRN (00:38)
[2023-01-25] MEDS: Ipratropium/Albuterol 3 ML NEB NEB SCH ×8 (01:48→22:57)
[2023-01-25] MEDS: Lorazepam 2 MG/ML VIAL SLOW IVP PRN ×3 (02:42→13:00)
[2023-01-25 04:05] LABS: #Lymphocytes 1.3 thou/uL (1.20-3.40); #Monocytes 0.6 thou/uL (0.11-0.59); #Neutrophils 13.1 thou/uL (1.40-6.50); %Basophils 0.1 % (0.0-1.0); %Eosinophils 0.2 % (0.0-10.0); %Lymphocytes 8.8 % (21.0-51.0); %Monocytes 3.9 % (0.0-10.0); Hemoglobin 11.7 g/dL (12.0-16.0); Mean Corpuscular HGB CONC 32.7 g/dL (32.0-36.0); Mean Corpuscular Hemoglobin 28.9 pg (27.0-31.0); Mean Corpuscular Volume 88.5 fl (78.0-98.0); Mean Platelet Volume 9.9 fL (7.4-10.4); Platelet Count 241 10x3/uL (130-400); RBC Distribution Width 14.4 % (11.5-14.5); Red Blood Cell (RBC) Count 4.03 mill/uL (4.20-5.40)
[2023-01-25 04:26] LABS: Anion Gap 16 mmol/L (10-20); BUN (Urea Nitrogen) 26 mg/dL (9.8-20.1); Calc. Creatinine Clearance 118 mL/min (70-130); Carbon Dioxide 27 mmol/L (22-29); Chloride 98 mmol/L (98-107); Estimated GFR 106; Glucose 236 mg/dL (70-105); Potassium 4.2 mmol/L (3.5-5.1); Sodium 137 mmol/L (136-145)
[2023-01-25] MEDS: HumaLOG 300 UNITS/3 ML VIAL SC PRN ×2 (04:51→16:15)
[2023-01-25] MEDS: Cefepime 2 GM in Sodium Chloride 0.9% 100 ML IVPB SCH ×2 (05:30→17:15)
[2023-01-25] MEDS: Dexmedetomidine 1,000 MCG in Sodium Chloride 0.9% 250 ML 240 ML IVPB SCH ×2 (06:16→19:17)
[2023-01-25 07:52] LABS: Actual Bicarbonate (HCO3a) 32.3 mEq/L (22-28); Base Excess (BEa) 7.5 mEq/L (-2.0 to +3.0); CO2 Tension 46.1 mmHg (35.0-45.0); Calcium, Ionized (arterial) 1.19 mmol/L (1.12-1.30); Carboxyhemoglobin (COHb) 0.4 gm% (0.0-3.0); Hematocrit-ABG 37 % (36.0-47.0); Hemoglobin (Hb) 12.5 g/dL (12.0-16.0); Potassium - ABG Lab 4.02 mmol/L (3.70-5.30); pH, Arterial 7.463 (7.35-7.45)
[2023-01-25 07:53] LABS: O2 Tension (PaO2), arterial 57.1 mmHg (80.0-100.0); Puncture Site RRA
[2023-01-25 07:54] LABS: ALV-art Gradient 134.825 mmHg (0-20)
[2023-01-25] MEDS: Gabapentin 400 MG CAP PER TUBE SCH ×3 (08:13→20:51)
[2023-01-25] MEDS: Insulin NPH Human Isophane 100 UNITS/ML (10 ML VIAL) SC SCH ×2 (08:14→20:52)
[2023-01-25] MEDS: Lansoprazole 15 MG/5 ML (BATCHED)UDCUP PER TUBE SCH (09:03)
[2023-01-25] MEDS ORDERED: Fentanyl CADD 100 ML ONE (13:14)
[2023-01-25] MEDS: Fentanyl CADD 100 ML IV SCH (13:17)
[2023-01-25] MEDS: OXcarbazepine 300 MG TAB PER TUBE SCH ×4 (14:18→20:51)
[2023-01-26] MEDS: Ipratropium/Albuterol 3 ML NEB NEB SCH ×7 (01:33→22:21)
[2023-01-26] MEDS: methylPREDNISolone Sod Succ 40 MG VIAL IVP SCH ×3 (06:24→17:10)
[2023-01-26] MEDS: Cefepime 2 GM in Sodium Chloride 0.9% 100 ML IVPB SCH ×2 (06:24→17:10)
[2023-01-26 06:59] LABS: #Basophils 0.1 thou/uL (0.0-0.2); #Eosinphils 0.2 thou/uL (0.0-0.7); #Lymphocytes 4.9 thou/uL (1.20-3.40); #Neutrophils 9.1 thou/uL (1.40-6.50); %Basophils 0.5 % (0.0-1.0); %Eosinophils 1.1 % (0.0-10.0); %Lymphocytes 31.8 % (21.0-51.0); %Monocytes 6.8 % (0.0-10.0); %Neutrophils 59.8 % (42.0-75.0); Hemoglobin 11.8 g/dL (12.0-16.0); Mean Corpuscular HGB CONC 32.4 g/dL (32.0-36.0); Mean Corpuscular Hemoglobin 28.3 pg (27.0-31.0); Mean Corpuscular Volume 87.3 fl (78.0-98.0); Mean Platelet Volume 9.8 fL (7.4-10.4); Platelet Count 252 10x3/uL (130-400); RBC Distribution Width 14.8 % (11.5-14.5); Red Blood Cell (RBC) Count 4.16 mill/uL (4.20-5.40); White Blood Cell (WBC) Count 15.2 10x3/uL (4.8-10.8)
[2023-01-26 07:22] LABS: Anion Gap 13 mmol/L (10-20); BUN (Urea Nitrogen) 22 mg/dL (9.8-20.1); Calc. Creatinine Clearance 126 mL/min (70-130); Calcium 8.7 mg/dL (7.8-10.44); Carbon Dioxide 27 mmol/L (22-29); Chloride 101 mmol/L (98-107); Estimated GFR 107; Glucose 129 mg/dL (70-105); Potassium 3.6 mmol/L (3.5-5.1); Sodium 137 mmol/L (136-145)
[2023-01-26] MEDS: Gabapentin 400 MG CAP PER TUBE SCH ×3 (07:59→21:15)
[2023-01-26] MEDS: Insulin NPH Human Isophane 100 UNITS/ML (10 ML VIAL) SC SCH ×2 (08:05→21:17)
[2023-01-26] MEDS: Lansoprazole 15 MG/5 ML (BATCHED)UDCUP PER TUBE SCH (08:20)
[2023-01-26] MEDS ORDERED: Haloperidol Lactate 5 MG/ML VIAL SLOW IVP SCH (09:45)
[2023-01-26] MEDS: Dexmedetomidine 1,000 MCG in Sodium Chloride 0.9% 250 ML 240 ML IVPB SCH (14:32)
[2023-01-26] MEDS: HumaLOG 300 UNITS/3 ML VIAL SC PRN (16:06)
[2023-01-26] MEDS: Haloperidol Lactate 5 MG/ML VIAL IM PRN ×2 (16:07→21:26)
[2023-01-26] MEDS: OXcarbazepine 300 MG TAB PER TUBE SCH (21:15)
[2023-01-27] MEDS: methylPREDNISolone Sod Succ 40 MG VIAL IVP SCH ×2 (00:17→05:27)
[2023-01-27] MEDS: Haloperidol Lactate 5 MG/ML VIAL IM PRN ×5 (01:26→23:55)
[2023-01-27 04:16] LABS: #Lymphocytes 1.4 thou/uL (1.20-3.40); #Monocytes 0.5 thou/uL (0.11-0.59); #Neutrophils 15.5 thou/uL (1.40-6.50); %Basophils 0.2 % (0.0-1.0); %Eosinophils 0.3 % (0.0-10.0); %Lymphocytes 7.7 % (21.0-51.0); %Neutrophils 88.8 % (42.0-75.0); Hemoglobin 12.9 g/dL (12.0-16.0); Mean Corpuscular HGB CONC 32.9 g/dL (32.0-36.0); Mean Corpuscular Hemoglobin 28.4 pg (27.0-31.0); Mean Corpuscular Volume 86.4 fl (78.0-98.0); Mean Platelet Volume 10.4 fL (7.4-10.4); Platelet Count 304 10x3/uL (130-400); RBC Distribution Width 14.8 % (11.5-14.5); Red Blood Cell (RBC) Count 4.52 mill/uL (4.20-5.40); White Blood Cell (WBC) Count 17.5 10x3/uL (4.8-10.8)
[2023-01-27 05:04] LABS: Chloride 97 mmol/L (98-107); Potassium 3.5 mmol/L (3.5-5.1); Sodium 132 mmol/L (136-145)
[2023-01-27 05:05] LABS: Calcium 8.9 mg/dL (7.8-10.44); Glucose 155 mg/dL (70-105)
[2023-01-27 05:07] LABS: Anion Gap 18 mmol/L (10-20); Carbon Dioxide 21 mmol/L (22-29)
[2023-01-27 05:09] LABS: BUN (Urea Nitrogen) 19 mg/dL (9.8-20.1); Calc. Creatinine Clearance 123 mL/min (70-130); Estimated GFR 108
[2023-01-27 05:11] LABS: Magnesium 1.6 mg/dL (1.6-2.6)
[2023-01-27] MEDS: Cefepime 2 GM in Sodium Chloride 0.9% 100 ML IVPB SCH (05:27)
[2023-01-27] MEDS ORDERED: Magnesium 2 GM/50 ML(in water) 2 GM in Premix Bag 1 BAG IVPB SCH (06:00)
[2023-01-27] MEDS: Ipratropium/Albuterol 3 ML NEB NEB SCH ×4 (07:17→23:12)
[2023-01-27] MEDS: Dexmedetomidine 1,000 MCG in Sodium Chloride 0.9% 250 ML 240 ML IVPB SCH ×2 (07:47→16:07)
[2023-01-27] MEDS: cloNIDine 0.1 MG TAB PO PRN (08:48)
[2023-01-27] MEDS: Gabapentin 400 MG CAP PER TUBE SCH ×3 (08:48→20:59)
[2023-01-27] MEDS: Insulin NPH Human Isophane 100 UNITS/ML (10 ML VIAL) SC SCH ×2 (08:48→21:21)
[2023-01-27] MEDS: Lansoprazole 15 MG/5 ML (BATCHED)UDCUP PER TUBE SCH (10:09)
[2023-01-27] MEDS: OXcarbazepine 300 MG TAB PER TUBE SCH (20:59)
[2023-01-28 04:16] LABS: #Eosinphils 0.1 thou/uL (0.0-0.7); #Lymphocytes 2.3 thou/uL (1.20-3.40); #Monocytes 0.8 thou/uL (0.11-0.59); #Neutrophils 11.1 thou/uL (1.40-6.50); %Basophils 0.3 % (0.0-1.0); %Eosinophils 0.5 % (0.0-10.0); %Lymphocytes 16.1 % (21.0-51.0); %Monocytes 5.5 % (0.0-10.0); %Neutrophils 77.6 % (42.0-75.0); Hemoglobin 11.9 g/dL (12.0-16.0); Mean Corpuscular HGB CONC 33.4 g/dL (32.0-36.0); Mean Corpuscular Hemoglobin 29.1 pg (27.0-31.0); Mean Platelet Volume 11.4 fL (7.4-10.4); Platelet Count 214 10x3/uL (130-400); RBC Distribution Width 15.1 % (11.5-14.5); Red Blood Cell (RBC) Count 4.08 mill/uL (4.20-5.40); White Blood Cell (WBC) Count 14.3 10x3/uL (4.8-10.8)
[2023-01-28 04:45] LABS: Anion Gap 16 mmol/L (10-20); BUN (Urea Nitrogen) 14 mg/dL (9.8-20.1); Calc. Creatinine Clearance 124 mL/min (70-130); Carbon Dioxide 20 mmol/L (22-29); Chloride 97 mmol/L (98-107); Estimated GFR 109; Glucose 191 mg/dL (70-105); Magnesium 1.5 mg/dL (1.6-2.6); Sodium 130 mmol/L (136-145)
[2023-01-28] MEDS: HumaLOG 300 UNITS/3 ML VIAL SC PRN (04:58)
[2023-01-28] MEDS ORDERED: Magnesium 2 GM/50 ML(in water) 2 GM in Premix Bag 1 BAG IVPB SCH ×2 (05:00→05:30)
[2023-01-28] MEDS ORDERED: Potassium Chloride 20 MEQ TAB PO SCH (05:30)
[2023-01-28] MEDS: Potassium Chloride 20 MEQ in Premix Bag 1 BAG IVPB SCH ×2 (06:28→09:16)
[2023-01-28] MEDS: Ipratropium/Albuterol 3 ML NEB NEB SCH ×3 (06:48→18:33)
[2023-01-28] MEDS: Gabapentin 400 MG CAP PER TUBE SCH ×3 (09:18→20:30)
[2023-01-28] MEDS: Insulin NPH Human Isophane 100 UNITS/ML (10 ML VIAL) SC SCH ×2 (09:20→21:49)
[2023-01-28] MEDS: Lansoprazole 15 MG/5 ML (BATCHED)UDCUP PER TUBE SCH (09:35)
[2023-01-28] MEDS: methylPREDNISolone Sod Succ 40 MG VIAL IVP SCH (09:50)
[2023-01-28] MEDS: Haloperidol Lactate 5 MG/ML VIAL IM PRN (13:10)
[2023-01-28 19:27] VITALS: BMI 26.1
[2023-01-28] MEDS: OXcarbazepine 300 MG TAB PER TUBE SCH (20:29)
[2023-01-29] MEDS: cloNIDine 0.1 MG TAB PO PRN (01:05)
[2023-01-29] MEDS: Ipratropium/Albuterol 3 ML NEB NEB SCH ×4 (01:36→18:47)
[2023-01-29 07:46] LABS: #Basophils 0.1 thou/uL (0.0-0.2); #Eosinphils 0.2 thou/uL (0.0-0.7); #Lymphocytes 2.4 thou/uL (1.20-3.40); #Monocytes 0.9 thou/uL (0.11-0.59); #Neutrophils 9.8 thou/uL (1.40-6.50); %Basophils 0.5 % (0.0-1.0); %Eosinophils 1.3 % (0.0-10.0); %Lymphocytes 18.2 % (21.0-51.0); %Monocytes 6.7 % (0.0-10.0); %Neutrophils 73.3 % (42.0-75.0); Hemoglobin 12.6 g/dL (12.0-16.0); Mean Corpuscular HGB CONC 33.6 g/dL (32.0-36.0); Mean Corpuscular Hemoglobin 29.2 pg (27.0-31.0); Mean Corpuscular Volume 86.9 fl (78.0-98.0); Mean Platelet Volume 10.5 fL (7.4-10.4); Platelet Count 288 10x3/uL (130-400); RBC Distribution Width 15.2 % (11.5-14.5); Red Blood Cell (RBC) Count 4.32 mill/uL (4.20-5.40); White Blood Cell (WBC) Count 13.3 10x3/uL (4.8-10.8)
[2023-01-29 08:00] LABS: Anion Gap 16 mmol/L (10-20); BUN (Urea Nitrogen) 9 mg/dL (9.8-20.1); Calc. Creatinine Clearance 116 mL/min (70-130); Calcium 8.8 mg/dL (7.8-10.44); Carbon Dioxide 19 mmol/L (22-29); Chloride 98 mmol/L (98-107); Estimated GFR 106; Glucose 160 mg/dL (70-105); Magnesium 1.8 mg/dL (1.6-2.6); Potassium 4.1 mmol/L (3.5-5.1); Sodium 129 mmol/L (136-145)
[2023-01-29] MEDS ORDERED: Lorazepam 2 MG/ML VIAL SLOW IVP PRN (08:41)
[2023-01-29] MEDS: Gabapentin 400 MG CAP PER TUBE SCH ×3 (09:09→21:25)
[2023-01-29] MEDS: methylPREDNISolone Sod Succ 40 MG VIAL IVP SCH (09:10)
[2023-01-29] MEDS: Insulin NPH Human Isophane 100 UNITS/ML (10 ML VIAL) SC SCH ×2 (09:10→21:12)
[2023-01-29] MEDS: Lansoprazole 15 MG/5 ML (BATCHED)UDCUP PER TUBE SCH (09:10)
[2023-01-29] MEDS ORDERED: Magnesium 2 GM/50 ML(in water) 2 GM in Premix Bag 1 BAG IVPB SCH (11:30)
[2023-01-29] MEDS: HumaLOG 300 UNITS/3 ML VIAL SC PRN ×2 (12:52→21:12)
[2023-01-29] MEDS: OXcarbazepine 300 MG TAB PER TUBE SCH (21:12)
[2023-01-29] MEDS ORDERED: Aripiprazole 10 MG TAB PO SCH (23:45)
[2023-01-29] MEDS ORDERED: Carvedilol 3.125 MG TAB PO SCH (23:45)
[2023-01-29] MEDS ORDERED: Simvastatin 10 MG TAB PO SCH (23:45)
[2023-01-29] MEDS ORDERED: PARoxetine 20 MG TAB PO SCH (23:45)
[2023-01-30] MEDS: hydrOXYzine 25 MG TAB PO PRN ×2 (00:03→21:25)
[2023-01-30] MEDS: tiZANidine HCl 4 MG TAB PO PRN ×2 (00:03→21:26)
[2023-01-30] MEDS: Ipratropium/Albuterol 3 ML NEB NEB SCH ×4 (00:57→18:53)
[2023-01-30 08:06] LABS: #Basophils 0.1 thou/uL (0.0-0.2); #Eosinphils 0.4 thou/uL (0.0-0.7); #Lymphocytes 2.6 thou/uL (1.20-3.40); #Monocytes 0.6 thou/uL (0.11-0.59); %Basophils 0.5 % (0.0-1.0); %Eosinophils 3.9 % (0.0-10.0); %Lymphocytes 24.5 % (21.0-51.0); %Monocytes 5.7 % (0.0-10.0); %Neutrophils 65.3 % (42.0-75.0); Hemoglobin 13.4 g/dL (12.0-16.0); Mean Corpuscular Hemoglobin 29.6 pg (27.0-31.0); Mean Corpuscular Volume 87.2 fl (78.0-98.0); Mean Platelet Volume 9.6 fL (7.4-10.4); Platelet Count 406 10x3/uL (130-400); RBC Distribution Width 15.3 % (11.5-14.5); Red Blood Cell (RBC) Count 4.51 mill/uL (4.20-5.40); White Blood Cell (WBC) Count 10.7 10x3/uL (4.8-10.8)
[2023-01-30 08:55] LABS: Anion Gap 16 mmol/L (10-20); BUN (Urea Nitrogen) 8 mg/dL (9.8-20.1); Calc. Creatinine Clearance 122 mL/min (70-130); Carbon Dioxide 22 mmol/L (22-29); Chloride 102 mmol/L (98-107); Estimated GFR 108; Glucose 98 mg/dL (70-105); Magnesium 1.9 mg/dL (1.6-2.6); Potassium 3.6 mmol/L (3.5-5.1); Sodium 136 mmol/L (136-145)
[2023-01-30] MEDS: Carvedilol 3.125 MG TAB PO SCH ×2 (08:55→16:19)
[2023-01-30] MEDS: Gabapentin 400 MG CAP PER TUBE SCH ×3 (08:55→21:26)
[2023-01-30] MEDS: methylPREDNISolone Sod Succ 40 MG VIAL IVP SCH (08:56)
[2023-01-30] MEDS: Lansoprazole 15 MG/5 ML (BATCHED)UDCUP PER TUBE SCH (08:56)
[2023-01-30] MEDS: Insulin NPH Human Isophane 100 UNITS/ML (10 ML VIAL) SC SCH ×3 (08:57→21:27)
[2023-01-30] MEDS ORDERED: Mometasone 200 MCG/Formoterol 5 MCG 120 PUFF INHALER INH SCH (09:30)
[2023-01-30] MEDS ORDERED: Magnesium 2 GM/50 ML(in water) 2 GM in Premix Bag 1 BAG IVPB SCH (10:45)
[2023-01-30] MEDS: HumaLOG 300 UNITS/3 ML VIAL SC PRN (12:08)
[2023-01-30] MEDS ORDERED: Aripiprazole 10 MG TAB PO SCH (21:00)
[2023-01-30] MEDS ORDERED: PARoxetine 20 MG TAB PO SCH (21:00)
[2023-01-30] MEDS ORDERED: Simvastatin 10 MG TAB PO SCH (21:00)
[2023-01-30] MEDS ORDERED: OXcarbazepine 300 MG TAB PO SCH (21:00)
[2023-01-31] MEDS: Mometasone 200 MCG/Formoterol 5 MCG 120 PUFF INHALER INH SCH ×2 (01:02→07:32)
[2023-01-31] MEDS: Ipratropium/Albuterol 3 ML NEB NEB SCH ×2 (01:45→07:32)
[2023-01-31] MEDS ORDERED: Mometasone 200 MCG/Formoterol 5 MCG 120 PUFF INHALER INH SCH (07:00)
[2023-01-31 07:24] LABS: Anion Gap 15 mmol/L (10-20); BUN (Urea Nitrogen) 10 mg/dL (9.8-20.1); Calc. Creatinine Clearance 130 mL/min (70-130); Calcium 8.6 mg/dL (7.8-10.44); Carbon Dioxide 23 mmol/L (22-29); Chloride 105 mmol/L (98-107); Estimated GFR 110; Glucose 77 mg/dL (70-105); Magnesium 1.7 mg/dL (1.6-2.6); Potassium 3.8 mmol/L (3.5-5.1); Sodium 139 mmol/L (136-145)
[2023-01-31 07:28] LABS: #Basophils 0.1 thou/uL (0.0-0.2); #Eosinphils 0.4 thou/uL (0.0-0.7); #Lymphocytes 3.1 thou/uL (1.20-3.40); #Monocytes 1.1 thou/uL (0.11-0.59); %Basophils 1.1 % (0.0-1.0); %Eosinophils 3.8 % (0.0-10.0); %Lymphocytes 28.7 % (21.0-51.0); %Monocytes 10.6 % (0.0-10.0); %Neutrophils 55.8 % (42.0-75.0); Mean Corpuscular Volume 88.4 fl (78.0-98.0); Mean Platelet Volume 10.6 fL (7.4-10.4); Platelet Count 308 10x3/uL (130-400); RBC Distribution Width 15.8 % (11.5-14.5); Red Blood Cell (RBC) Count 4.33 mill/uL (4.20-5.40); White Blood Cell (WBC) Count 10.8 10x3/uL (4.8-10.8)
[2023-01-31] MEDS ORDERED: Magnesium 2 GM/50 ML(in water) 2 GM in Premix Bag 1 BAG IVPB SCH (08:00)
[2023-01-31] MEDS: Lansoprazole 15 MG/5 ML (BATCHED)UDCUP PER TUBE SCH (08:35)
[2023-01-31] MEDS: Gabapentin 400 MG CAP PER TUBE SCH ×2 (08:36→15:24)
[2023-01-31] MEDS: Carvedilol 3.125 MG TAB PO SCH ×2 (08:36→16:29)
[2023-01-31] MEDS: Insulin NPH Human Isophane 100 UNITS/ML (10 ML VIAL) SC SCH (08:39)
[2023-01-31] MEDS: methylPREDNISolone Sod Succ 40 MG VIAL IVP SCH (08:40)
[2023-01-31] MEDS ORDERED: Ipratropium 200 Puff Oral Inhaler INH SCH (13:00)
[2023-01-31] MEDS ORDERED: Albuterol 200 PUFF (6.7GM INHALER) INH SCH (13:00)
[2023-01-31 16:03] VITALS: TEMP 97.8
[2023-01-31 16:57] VITALS: BP 148/95
[2023-02-01] MEDS ORDERED: predniSONE 20 MG TAB PO SCH (08:00)
== END 2023-01-31 19:02 | DRG 870 ==
LOC: SUATTDRO 18:38 → ERS 18:38 → CCU 19:48 → T4-A 01-28 15:36
PROVIDERS: ADMIT Family Medicine; ATTEND Emergency Medicine
PROC: 4A133R1 Monitoring of Arterial Saturation, Peripheral, Percutaneous Approach (ICD-10-PCS; principal; 2023-01-16)
PROC: 5A1955Z Respiratory Ventilation, Greater than 96 Consecutive Hours (ICD-10-PCS; 2023-01-16)
PROC: 3E03329 Introduction of Other Anti-infective into Peripheral Vein, Percutaneous Approach (ICD-10-PCS; 2023-01-16)
PROC: 0BH17EZ Insertion of Endotracheal Airway into Trachea, Via Natural or Artificial Opening (ICD-10-PCS; 2023-01-16)
PROC: 0DH67UZ Insertion of Feeding Device into Stomach, Via Natural or Artificial Opening (ICD-10-PCS; 2023-01-16)
PROC: 5A0935A Assistance with Respiratory Ventilation, Less than 24 Consecutive Hours, High Flow/Velocity Cannula (ICD-10-PCS; 2023-01-26)
PROC: 5A09357 Assistance with Respiratory Ventilation, Less than 24 Consecutive Hours, Continuous Positive Airway Pressure (ICD-10-PCS; 2023-01-26)
DX: A41.9 Sepsis, unspecified organism (principal); E11.10 Type 2 diabetes mellitus with ketoacidosis without coma; J96.01 Acute respiratory failure with hypoxia; J18.9 Pneumonia, unspecified organism; G93.41 Metabolic encephalopathy; J96.02 Acute respiratory failure with hypercapnia; J44.1 Chronic obstructive pulmonary disease with (acute) exacerbation; J44.0 Chronic obstructive pulmonary disease with (acute) lower respiratory infection; N17.9 Acute kidney failure, unspecified; N30.00 Acute cystitis without hematuria; I50.42 Chronic combined systolic (congestive) and diastolic (congestive) heart failure; E11.65 Type 2 diabetes mellitus with hyperglycemia; I11.0 Hypertensive heart disease with heart failure; R13.10 Dysphagia, unspecified; D64.9 Anemia, unspecified; E66.9 Obesity, unspecified; F31.9 Bipolar disorder, unspecified; R53.81 Other malaise; I34.0 Nonrheumatic mitral (valve) insufficiency; F17.210 Nicotine dependence, cigarettes, uncomplicated; R65.20 Severe sepsis without septic shock; Z88.8 Allergy status to other drugs, medicaments and biological substances; Z79.51 Long term (current) use of inhaled steroids; Z79.84 Long term (current) use of oral hypoglycemic drugs; Z79.82 Long term (current) use of aspirin; Z90.49 Acquired absence of other specified parts of digestive tract; Z90.81 Acquired absence of spleen; Z98.890 Other specified postprocedural states; Z78.1 Physical restraint status; Z51.5 Encounter for palliative care; Z68.26 Body mass index [BMI] 26.0-26.9, adult; Z20.822 Contact with and (suspected) exposure to COVID-19
CPT/HCPCS: 31500; 36415; 36416; 36600; 51702; 70450; 70551; 71045; 74230; 80048; 80053; 81003; 81015; 82010; 82553; 82805; 83605; 83735; 83880; 84100; 84145; 84443; 84484; 85025; 87040; 87070; 87077; 87086; 87186; 87205; 87449; 87899; 93005; 93880; 94002; 94003; 94640; 94660; 96365; 96367; 96375; C9113; J0456; J0692; J1630; J1650; J1815; J1940; J2060; J2272; J2704; J2920; J3010; J3475; J3480; J3490; J7050; J7611; J7620

== ENCOUNTER 2023-02-22 16:51 | Inpatient (IN) | payer OTHER ==
[2023-02-22] MEDS ORDERED: Ipratropium/Albuterol 3 ML NEB ONE (17:20)
[2023-02-22] MEDS ORDERED: Azithromycin 250 MG TAB ONE (17:20)
[2023-02-22] MEDS ORDERED: Magnesium 2 GM/50 ML BAG (IN WATER) ONE (17:20)
[2023-02-22] MEDS ORDERED: cefTRIAXone (ROCEPHIN) 2 GM VIAL ONE (17:20)
[2023-02-22 17:39] LABS: Actual Bicarbonate (HCO3v) 26.2 mEq/L (22-28); Base Excess 1.4 mEq/L (-2.0 to +3.0); Chloride (VBG) 96 mmol/L (98-106); Hematocrit-VBG 32 % (36.0-47.0); Hemoglobin (Hb) 10.9 g/dL (11.7-16.0); Potassium (VBG) 4.57 mmol/L (3.70-5.30); Sodium 130.9 mmol/L (133-146); pH (venous) 7.408 (7.32-7.43)
[2023-02-22 17:40] LABS: #Basophils 0.1 thou/uL (0.0-0.2); #Eosinphils 0.4 thou/uL (0.0-0.7); #Monocytes 0.7 thou/uL (0.11-0.59); #Neutrophils 7.7 thou/uL (1.40-6.50); %Eosinophils 3.1 % (0.0-10.0); %Lymphocytes 23.5 % (21.0-51.0); %Monocytes 5.9 % (0.0-10.0); %Neutrophils 66.2 % (42.0-75.0); Hemoglobin 9.5 g/dL (12.0-16.0); Mean Corpuscular HGB CONC 32.5 g/dL (32.0-36.0); Mean Corpuscular Hemoglobin 27.5 pg (27.0-31.0); Mean Corpuscular Volume 84.4 fl (78.0-98.0); Mean Platelet Volume 10.1 fL (7.4-10.4); Platelet Count 478 10x3/uL (130-400); Red Blood Cell (RBC) Count 3.46 mill/uL (4.20-5.40); White Blood Cell (WBC) Count 11.6 10x3/uL (4.8-10.8)
[2023-02-22 18:05] LABS: ALT (SGPT) 24 U/L (8-55); AST (SGOT) 10 U/L (5-34); Albumin 3.8 g/dL (3.5-5.0); Alkaline Phosphatase 118 U/L (40-110); Anion Gap 14 mmol/L (10-20); BUN (Urea Nitrogen) 21 mg/dL (9.8-20.1); Bilirubin, Total 0.2 mg/dL (0.2-1.2); Calc. Creatinine Clearance 0 mL/min (70-130); Calcium 9.2 mg/dL (7.8-10.44); Carbon Dioxide 24 mmol/L (22-29); Chloride 98 mmol/L (98-107); Estimated GFR 97; Globulin 2.6 g/dL (2.4-3.5); Glucose 219 mg/dL (70-105); Potassium 4.9 mmol/L (3.5-5.1); Protein, Total 6.4 g/dL (6.0-8.3); Sodium 131 mmol/L (136-145)
[2023-02-22 18:25] LABS: CKMB 1.6 ng/mL (0-6.6)
[2023-02-22] MEDS ORDERED: Furosemide 40 MG/4 ML VIAL ONE (18:39)
[2023-02-22] MEDS ORDERED: Nitroglycerin 2% Ointment 1 INCH/1 GM Packet ONE (18:39)
[2023-02-22] MEDS ORDERED: Aspirin Chewable 81 MG TAB ONE (18:39)
[2023-02-22] MEDS ORDERED: hydrALAZINE 20 MG/ML VIAL ONE (19:26)
[2023-02-22] MEDS ORDERED: hydrALAZINE 20 MG/ML VIAL SLOW IVP PRN (19:58)
[2023-02-22] MEDS ORDERED: Nitroglycerin 0.4 MG TAB (25 Tab Bottle) SL PRN (19:59)
[2023-02-22] MEDS ORDERED: Dextrose 5% in Water 1,000 ML IV PRN (20:05)
[2023-02-22] MEDS ORDERED: Ondansetron ODT 4 MG TAB PO PRN (20:05)
[2023-02-22] MEDS ORDERED: Dextrose 50% Abboject 50 ML SYRINGE SLOW IVP PRN (20:05)
[2023-02-22] MEDS ORDERED: Glucagon 1 MG/ML KIT IM PRN (20:05)
[2023-02-22] MEDS ORDERED: HumaLOG 300 UNITS/3 ML VIAL SC PRN ×2 (20:05)
[2023-02-22] MEDS ORDERED: Acetaminophen 650 MG Suppository PR PRN (20:05)
[2023-02-22] MEDS ORDERED: Ondansetron PF 4 MG/2 ML Vial IVP PRN (20:05)
[2023-02-22] MEDS ORDERED: Ipratropium/Albuterol 3 ML NEB NEB PRN (20:35)
[2023-02-22] MEDS ORDERED: PARoxetine 20 MG TAB PO SCH (21:00)
[2023-02-22] MEDS ORDERED: Doxycycline 100 MG in Syringe 0 ML IVPB SCH (21:00)
[2023-02-22] MEDS ORDERED: Aripiprazole 10 MG TAB PO SCH (21:00)
[2023-02-22 21:14] LABS: Troponin I 0.049 ng/mL (< 0.028)
[2023-02-22 21:35] VITALS: BMI 28.8
[2023-02-22] MEDS: Doxycycline 100 MG in Sodium Chloride 0.9% 100 ML IVPB SCH (21:45)
[2023-02-22] MEDS: Ipratropium/Albuterol 3 ML NEB NEB SCH (23:33)
[2023-02-23 00:11] LABS: Troponin I 0.058 ng/mL (< 0.028)
[2023-02-23] MEDS: Ipratropium/Albuterol 3 ML NEB NEB SCH ×3 (03:09→11:00)
[2023-02-23 05:30] LABS: #Basophils 0.1 thou/uL (0.0-0.2); #Eosinphils 0.1 thou/uL (0.0-0.7); #Monocytes 0.6 thou/uL (0.11-0.59); #Neutrophils 6.9 thou/uL (1.40-6.50); %Basophils 0.8 % (0.0-1.0); %Eosinophils 0.6 % (0.0-10.0); %Lymphocytes 25.2 % (21.0-51.0); Hemoglobin 9.6 g/dL (12.0-16.0); Mean Corpuscular HGB CONC 32.3 g/dL (32.0-36.0); Mean Corpuscular Hemoglobin 26.8 pg (27.0-31.0); Mean Platelet Volume 10.1 fL (7.4-10.4); Platelet Count 506 10x3/uL (130-400); RBC Distribution Width 16.8 % (11.5-14.5); Red Blood Cell (RBC) Count 3.58 mill/uL (4.20-5.40); White Blood Cell (WBC) Count 10.2 10x3/uL (4.8-10.8)
[2023-02-23 06:04] LABS: Anion Gap 17 mmol/L (10-20); BUN (Urea Nitrogen) 21 mg/dL (9.8-20.1); Calc. Creatinine Clearance 103 mL/min (70-130); Calcium 9.7 mg/dL (7.8-10.44); Carbon Dioxide 26 mmol/L (22-29); Chloride 94 mmol/L (98-107); Estimated GFR 103; Glucose 190 mg/dL (70-105); Iron 37 ug/dL (50-170); Iron Binding Capacity, Total 254 mcg/dL (265-497); Magnesium 1.4 mg/dL (1.6-2.6); Sodium 133 mmol/L (136-145)
[2023-02-23] MEDS: Acetaminophen 325 MG TAB PO PRN ×2 (06:47→13:08)
[2023-02-23] MEDS ORDERED: Ipratropium Bromide 2.5 ml Neb NEB SCH (07:00)
[2023-02-23] MEDS ORDERED: Carvedilol 3.125 MG TAB PO SCH (08:00)
[2023-02-23] MEDS ORDERED: Magnesium Sulfate In Water 4 GM in Premix Bag 1 BAG IVPB SCH (08:30)
[2023-02-23] MEDS ORDERED: Furosemide 40 MG/4 ML VIAL SLOW IVP SCH (09:00)
[2023-02-23] MEDS ORDERED: methylPREDNISolone Sod Succ 40 MG VIAL IVP SCH ×2 (09:00)
[2023-02-23 10:58] VITALS: BP 174/70; TEMP 97.6
[2023-02-23] MEDS: Doxycycline 100 MG in Sodium Chloride 0.9% 100 ML IVPB SCH (13:00)
== END 2023-02-23 14:50 | disposition home health service (06) | DRG 291 ==
LOC: ERS 16:51 → 2NO 19:14
PROVIDERS: ADMIT Internal Medicine; ATTEND Internal Medicine
DX: I11.0 Hypertensive heart disease with heart failure (principal); I50.33 Acute on chronic diastolic (congestive) heart failure; J18.9 Pneumonia, unspecified organism; J44.1 Chronic obstructive pulmonary disease with (acute) exacerbation; E87.1 Hypo-osmolality and hyponatremia; J44.0 Chronic obstructive pulmonary disease with (acute) lower respiratory infection; E11.9 Type 2 diabetes mellitus without complications; E03.9 Hypothyroidism, unspecified; G89.29 Other chronic pain; M54.9 Dorsalgia, unspecified; F12.10 Cannabis abuse, uncomplicated; F15.10 Other stimulant abuse, uncomplicated; R77.8 Other specified abnormalities of plasma proteins; D50.9 Iron deficiency anemia, unspecified; Z88.1 Allergy status to other antibiotic agents; Z88.8 Allergy status to other drugs, medicaments and biological substances; Z79.899 Other long term (current) drug therapy; Z79.1 Long term (current) use of non-steroidal anti-inflammatories (NSAID); Z79.4 Long term (current) use of insulin; Z79.84 Long term (current) use of oral hypoglycemic drugs; Z90.49 Acquired absence of other specified parts of digestive tract; Z90.81 Acquired absence of spleen; Z87.891 Personal history of nicotine dependence
CPT/HCPCS: 36415; 36416; 71045; 71275; 80048; 80053; 82553; 82728; 82805; 83540; 83550; 83735; 83880; 84484; 85025; 85379; 93005; 94760; 96365; 96367; 96375; J0360; J0696; J1650; J1815; J1940; J2920; J3475; J3490; J7620

== ENCOUNTER 2023-03-16 16:03 | Inpatient (IN) | payer OTHER ==
[~2023-03-16 16:03] MED LIST: Heparin 10,000 UNITS/ 10 ML VIAL ONE
[2023-03-16] MEDS ORDERED: Nitroglycerin 50 MG/250 ML BOT 250 ML ONE (16:15)
[2023-03-16 16:52] LABS: #Basophils 0.1 thou/uL (0.0-0.2); #Eosinphils 0.1 thou/uL (0.0-0.7); #Monocytes 0.4 thou/uL (0.11-0.59); #Neutrophils 22.1 thou/uL (1.40-6.50); %Basophils 0.5 % (0.0-1.0); %Eosinophils 0.6 % (0.0-10.0); %Lymphocytes 5.8 % (21.0-51.0); %Monocytes 1.8 % (0.0-10.0); %Neutrophils 90.4 % (42.0-75.0); Hemoglobin 9.9 g/dL (12.0-16.0); Mean Corpuscular HGB CONC 31.8 g/dL (32.0-36.0); Mean Corpuscular Hemoglobin 28.4 pg (27.0-31.0); Mean Corpuscular Volume 89.1 fl (78.0-98.0); Mean Platelet Volume 9.9 fL (7.4-10.4); Platelet Count 399 10x3/uL (130-400); RBC Distribution Width 16.5 % (11.5-14.5); Red Blood Cell (RBC) Count 3.49 mill/uL (4.20-5.40); White Blood Cell (WBC) Count 24.5 10x3/uL (4.8-10.8)
[2023-03-16 17:01] LABS: Actual Bicarbonate (HCO3a) 24.1 mEq/L (22-28); Analyzer IN Cardio ER; Calcium, Ionized (arterial) 1.18 mmol/L (1.12-1.30); Carboxyhemoglobin (COHb) 0.3 gm% (0.0-3.0); Hematocrit-ABG 34 % (36.0-47.0); Hemoglobin (Hb) 11.4 g/dL (12.0-16.0); O2 Tension (PaO2), arterial 136.4 mmHg (80.0-100.0)
[2023-03-16 17:16] LABS: CO2 Tension 73.9 mmHg (35.0-45.0); pH, Arterial 7.132 (7.35-7.45)
[2023-03-16 17:17] LABS: ALT (SGPT) 39 U/L (8-55); AST (SGOT) 29 U/L (5-34); Albumin 4.3 g/dL (3.5-5.0); Alkaline Phosphatase 150 U/L (40-110); Anion Gap 19 mmol/L (10-20); BUN (Urea Nitrogen) 49 mg/dL (9.8-20.1); Bilirubin, Total 0.2 mg/dL (0.2-1.2); Calc. Creatinine Clearance 0 mL/min (70-130); Calcium 9.4 mg/dL (7.8-10.44); Carbon Dioxide 21 mmol/L (22-29); Chloride 98 mmol/L (98-107); Estimated GFR 35; Globulin 3.3 g/dL (2.4-3.5); Glucose 272 mg/dL (70-105); Lipase 50 U/L (8-78); Protein, Total 7.6 g/dL (6.0-8.3); Sodium 131 mmol/L (136-145)
[2023-03-16 17:17] LABS: Potassium - ABG Lab 6.93 mmol/L (3.70-5.30); Puncture Site RRA
[2023-03-16 17:19] LABS: ALV-art Gradient 484.225 mmHg (0-20)
[2023-03-16 17:22] LABS: Potassium 7.1 mmol/L (3.5-5.1)
[2023-03-16] MEDS ORDERED: methylPREDNISolone Sod Succ/PF 125 MG/2 ML VIAL ONE (17:25)
[2023-03-16] MEDS ORDERED: Furosemide 40 MG/4 ML VIAL ONE (17:25)
[2023-03-16] MEDS ORDERED: Calcium Chloride 1 GM/10 ML Abboject SYRINGE ONE (17:44)
[2023-03-16] MEDS ORDERED: Insulin Regular 300 UNITS/3 ML VIAL ONE (17:44)
[2023-03-16] MEDS ORDERED: Sodium Bicarb 50 MEQ/50 ML VIAL ONE (17:44)
[2023-03-16] MEDS ORDERED: Dextrose 50% Abboject 50 ML SYRINGE ONE (17:44)
[2023-03-16] MEDS ORDERED: Ondansetron PF 4 MG/2 ML Vial IVP PRN (18:13)
[2023-03-16] MEDS ORDERED: LOKELMA 10 GM PACKET PO SCH (18:15)
[2023-03-16] MEDS ORDERED: Ipratropium/Albuterol 3 ML NEB EZPAP PRN (18:15)
[2023-03-16 18:44] LABS: Actual Bicarbonate (HCO3a) 22.5 mEq/L (22-28); Analyzer IN Cardio ER; Base Excess (BEa) -4.6 mEq/L (-2.0 to +3.0); Calcium, Ionized (arterial) 1.29 mmol/L (1.12-1.30); Carboxyhemoglobin (COHb) 0.3 gm% (0.0-3.0); Hematocrit-ABG 28 % (36.0-47.0); Hemoglobin (Hb) 9.5 g/dL (12.0-16.0); O2 Tension (PaO2), arterial 339.1 mmHg (80.0-100.0); Potassium - ABG Lab 5.95 mmol/L (3.70-5.30); pH, Arterial 7.255 (7.35-7.45)
[2023-03-16] MEDS ORDERED: Aspirin 300 MG Suppository ONE (19:15)
[2023-03-16] MEDS ORDERED: Albuterol 2.5 MG/0.5 ML NEB ONE (19:24)
[2023-03-16] MEDS ORDERED: Dextrose 5% in Water 1,000 ML IV PRN (19:44)
[2023-03-16] MEDS ORDERED: Glucagon 1 MG/ML KIT IM PRN (19:44)
[2023-03-16] MEDS ORDERED: HumaLOG 300 UNITS/3 ML VIAL SC PRN ×2 (19:44)
[2023-03-16] MEDS ORDERED: Dextrose 50% Abboject 50 ML SYRINGE SLOW IVP PRN (19:44)
[2023-03-16] MEDS: Ipratropium/Albuterol 3 ML NEB NEB SCH ×2 (20:38→22:47)
[2023-03-16 20:58] LABS: Puncture Site LRA
[2023-03-16] MEDS ORDERED: Vancomycin 1 GM in Premix Bag 1 BAG IVPB SCH ×2 (21:00→23:59)
[2023-03-16] MEDS ORDERED: Cefepime 1 GM in Sodium Chloride 0.9% 100 ML IVPB SCH (21:00)
[2023-03-16 21:08] LABS: Bacteria/HPF None Seen HPF (None Seen); Bilirubin Negative (Negative); Blood, Urine Negative (Negative); CAUTI Indications for Culture Alt mental st,lethar; Clarity Clear (Clear); Glucose, Urine (Dipstick) 50 mg/dL (Negative); Ketone, Urine Negative (Negative); Leukocyte Negative Leu/uL (Negative); Nitrite Negative (Negative); Protein, Urine (Dipstick) Negative (Neg-Trace); RBC/HPF 0-3 HPF (0-3); Specific Gravity, Urine 1.009 (1.002-1.036); Squamous Epithelial 0-3 HPF (0-3); Urobilinogen Normal mg/dL (Less than 2); WBC/HPF 0-3 HPF (0-3)
[2023-03-16 21:12] LABS: Urine Culture Reflex No No
[2023-03-16 21:15] VITALS: BMI 32.2
[2023-03-16 21:16] LABS: Amphetamine Not Detected (NotDetected); Barbiturates Screen Not Detected (NotDetected); Benzodiazepine Screen Not Detected (NotDetected); Cocaine Metabolite Screen Not Detected (NotDetected); Methadone Not Detected (NotDetected); Methamphetamine Not Detected (NotDetected); Opiate Screen Not Detected (NotDetected); Oxycodone Screen Not Detected (NotDetected); Phencyclidine (PCP) Not Detected (NotDetected); THC/Cannabinoid Screen Not Detected (NotDetected); Tricyclic Screen Not Detected (NotDetected)
[2023-03-16] MEDS: Heparin 5,000 UNITS/ML VIAL SC SCH (21:30)
[2023-03-16 23:17] LABS: HBSAB Concentration Less than 8.00 mIU/mL; HBSAg Index 0.14 S/CO (0-0.99); Hep B Core Total Ab Non-Reactive (NonReactive); Hep B Core Total Index 0.07 S/CO (0-0.79); Hep B Surf AB Non-Reactive (NonReactive); Hep B Surf Ag Non-Reactive S/CO (NonReactive); Hep C IgG Ab Non-Reactive S/CO (NonReactive); Hep C Index 0.07 S/CO (0-0.79)
[2023-03-17] MEDS ORDERED: methylPREDNISolone Sod Succ 40 MG VIAL IVP SCH (02:00)
[2023-03-17] MEDS ORDERED: Cefepime 1 GM in Sodium Chloride 0.9% 100 ML IVPB SCH (02:00)
[2023-03-17] MEDS: Ipratropium/Albuterol 3 ML NEB NEB SCH ×6 (02:42→23:11)
[2023-03-17 04:45] LABS: #Monocytes 0.5 thou/uL (0.11-0.59); #Neutrophils 9.6 thou/uL (1.40-6.50); %Basophils 0.3 % (0.0-1.0); %Lymphocytes 12.8 % (21.0-51.0); %Monocytes 4.1 % (0.0-10.0); %Neutrophils 82.3 % (42.0-75.0); Hemoglobin 8.1 g/dL (12.0-16.0); Mean Corpuscular HGB CONC 32.3 g/dL (32.0-36.0); Mean Corpuscular Hemoglobin 28.2 pg (27.0-31.0); Mean Corpuscular Volume 87.5 fl (78.0-98.0); Mean Platelet Volume 10.1 fL (7.4-10.4); Platelet Count 334 10x3/uL (130-400); RBC Distribution Width 15.9 % (11.5-14.5); Red Blood Cell (RBC) Count 2.87 mill/uL (4.20-5.40)
[2023-03-17 04:55] LABS: White Blood Cell (WBC) Count 11.7 10x3/uL (4.8-10.8)
[2023-03-17 05:16] LABS: Anion Gap 11 mmol/L (10-20); BUN (Urea Nitrogen) 22 mg/dL (9.8-20.1); Calc. Creatinine Clearance 98 mL/min (70-130); Calcium 8.9 mg/dL (7.8-10.44); Carbon Dioxide 29 mmol/L (22-29); Chloride 95 mmol/L (98-107); Estimated GFR 83; Glucose 196 mg/dL (70-105); Potassium 4.2 mmol/L (3.5-5.1); Sodium 131 mmol/L (136-145)
[2023-03-17] MEDS: Mometasone 200 MCG/Formoterol 5 MCG 120 PUFF INHALER INH SCH ×2 (07:22→18:39)
[2023-03-17] MEDS: Acetaminophen 325 MG TAB PO PRN ×2 (08:24→21:58)
[2023-03-17] MEDS: Heparin 5,000 UNITS/ML VIAL SC SCH ×2 (08:24→21:58)
[2023-03-17] MEDS: methylPREDNISolone Sod Succ 40 MG VIAL IVP SCH ×2 (08:24→17:29)
[2023-03-17] MEDS: Cefepime 2 GM in Sodium Chloride 0.9% 100 ML IVPB SCH (13:57)
[2023-03-17 18:36] LABS: SARS-CoV-2 NAA Rapid Test Not Detected (NotDetected)
[2023-03-18] MEDS: Cefepime 2 GM in Sodium Chloride 0.9% 100 ML IVPB SCH ×2 (01:36→14:04)
[2023-03-18] MEDS: Ipratropium/Albuterol 3 ML NEB NEB SCH ×4 (02:33→14:15)
[2023-03-18 04:47] VITALS: TEMP 97.4
[2023-03-18] MEDS: methylPREDNISolone Sod Succ 40 MG VIAL IVP SCH (05:43)
[2023-03-18 06:05] LABS: #Basophils 0.1 thou/uL (0.0-0.2); #Eosinphils 0.1 thou/uL (0.0-0.7); #Monocytes 0.8 thou/uL (0.11-0.59); #Neutrophils 5.8 thou/uL (1.40-6.50); %Basophils 0.7 % (0.0-1.0); %Eosinophils 1.3 % (0.0-10.0); %Lymphocytes 33.2 % (21.0-51.0); %Monocytes 7.8 % (0.0-10.0); %Neutrophils 56.8 % (42.0-75.0); Hemoglobin 7.9 g/dL (12.0-16.0); Mean Corpuscular HGB CONC 33.1 g/dL (32.0-36.0); Mean Corpuscular Volume 87.9 fl (78.0-98.0); Mean Platelet Volume 9.9 fL (7.4-10.4); Platelet Count 367 10x3/uL (130-400); Red Blood Cell (RBC) Count 2.72 mill/uL (4.20-5.40); White Blood Cell (WBC) Count 10.2 10x3/uL (4.8-10.8)
[2023-03-18 06:41] LABS: Anion Gap 14 mmol/L (10-20); BUN (Urea Nitrogen) 29 mg/dL (9.8-20.1); Calc. Creatinine Clearance 116 mL/min (70-130); Calcium 9.2 mg/dL (7.8-10.44); Carbon Dioxide 25 mmol/L (22-29); Chloride 101 mmol/L (98-107); Estimated GFR 102; Glucose 120 mg/dL (70-105); Potassium 4.1 mmol/L (3.5-5.1); Sodium 136 mmol/L (136-145)
[2023-03-18] MEDS: Mometasone 200 MCG/Formoterol 5 MCG 120 PUFF INHALER INH SCH (07:09)
[2023-03-18] MEDS: Heparin 5,000 UNITS/ML VIAL SC SCH (08:19)
[2023-03-18] MEDS ORDERED: Non-Formulary Item 1 EACH (Aripiprazole [Abilify] 20 MG Tablet) PO SCH (11:00)
[2023-03-18] MEDS ORDERED: Non-Formulary Item 1 EACH (Paroxetine Hcl [Paxil] 30 MG Tablet) PO SCH (11:00)
[2023-03-18] MEDS ORDERED: Non-Formulary Item 1 EACH (Gabapentin [Gabapentin] 800 MG Tablet) PO SCH (11:00)
[2023-03-18] MEDS ORDERED: PARoxetine 20 MG TAB PO SCH (11:30)
[2023-03-18] MEDS ORDERED: Aripiprazole 10 MG TAB PO SCH (11:30)
[2023-03-18 14:12] VITALS: BP 150/80
[2023-03-18] MEDS ORDERED: Gabapentin 400 MG CAP PO SCH (15:00)
[2023-03-18] MEDS ORDERED: OXCARBAZEPINE 600 MG PO SCH (21:00)
[2023-03-18] MEDS ORDERED: OXcarbazepine 300 MG TAB PO SCH ×2 (21:00)
[2023-03-19] MEDS ORDERED: PARoxetine 20 MG TAB PO SCH (07:30)
[2023-03-19] MEDS ORDERED: Aripiprazole 10 MG TAB PO SCH (09:00)
== END 2023-03-18 14:36 | disposition home or self-care (01) | DRG 291 ==
LOC: ERS 16:03 → CCU 18:03 → T4-B 03-17 14:33
PROVIDERS: ADMIT Internal Medicine; ATTEND Family Medicine
PROC: 4A133R1 Monitoring of Arterial Saturation, Peripheral, Percutaneous Approach (ICD-10-PCS; principal; 2023-03-16)
PROC: 5A1D70Z Performance of Urinary Filtration, Intermittent, Less than 6 Hours Per Day (ICD-10-PCS; 2023-03-16)
PROC: 5A09357 Assistance with Respiratory Ventilation, Less than 24 Consecutive Hours, Continuous Positive Airway Pressure (ICD-10-PCS; 2023-03-16)
DX: I13.0 Hypertensive heart and chronic kidney disease with heart failure and stage 1 through stage 4 chronic kidney disease, or unspecified chronic kidney disease (principal); G93.41 Metabolic encephalopathy; I50.43 Acute on chronic combined systolic (congestive) and diastolic (congestive) heart failure; J96.01 Acute respiratory failure with hypoxia; J96.02 Acute respiratory failure with hypercapnia; N17.9 Acute kidney failure, unspecified; J44.1 Chronic obstructive pulmonary disease with (acute) exacerbation; E03.9 Hypothyroidism, unspecified; G89.29 Other chronic pain; F31.9 Bipolar disorder, unspecified; E87.5 Hyperkalemia; D72.829 Elevated white blood cell count, unspecified; E11.22 Type 2 diabetes mellitus with diabetic chronic kidney disease; N18.1 Chronic kidney disease, stage 1; Z20.822 Contact with and (suspected) exposure to COVID-19; D63.1 Anemia in chronic kidney disease; Z79.82 Long term (current) use of aspirin; Z79.899 Other long term (current) drug therapy; Z88.8 Allergy status to other drugs, medicaments and biological substances; Z79.51 Long term (current) use of inhaled steroids; Z79.84 Long term (current) use of oral hypoglycemic drugs; Z90.710 Acquired absence of both cervix and uterus; Z90.49 Acquired absence of other specified parts of digestive tract; Z98.890 Other specified postprocedural states; Z82.49 Family history of ischemic heart disease and other diseases of the circulatory system; Z83.6 Family history of other diseases of the respiratory system; Z87.891 Personal history of nicotine dependence
CPT/HCPCS: 36415; 36416; 36556; 36600; 71045; 80048; 80053; 80306; 81001; 82805; 83605; 83690; 83880; 84484; 85025; 86704; 87040; 87081; 90935; 93005; 94644; 94660; 96365; 96374; 96375; G0257; J0692; J1644; J1815; J1940; J2920; J2930; J3370-JW; J3490; J7611; J7620; J7999